=== PATIENT | male | born 1955 | race Caucasian/White ===

== ENCOUNTER → 2021-04-07 | Outpatient (CLI) | payer OTHER ==
[2021-04-07 14:02] LABS: ABSOLUTE RETIC # 84 10e9/uL (24-90); RETICULOCYTE % 1.67 % (0.50-2.40)
[2021-04-07 14:18] LABS: BASOPHILS % (MANUAL) 1 %; EOSINOPHILS % (MANUAL) 6 %; LYMPHOCYTES % (MANUAL) 20 %; MONOCYTES % (MANUAL) 13 %; NEUTROPHILS % (MANUAL) 44 %; RBC MORPH NORMAL; REACTIVE LYMPHOCYTES 16 %
== END ==
LOC: LABNPT 13:51
PROVIDERS: ATTEND Family Medicine
DX: Z01.89 Encounter for other specified special examinations (principal)
CPT/HCPCS: 85007; 85045; 85055

== ENCOUNTER 2021-05-11 05:27 | Outpatient (RCR) | payer OTHER ==
[2021-05-06 10:32] LABS: BASOPHILS % (AUTO) 1 % (0-10); EOSINOPHILS # (AUTO) 0.2 10^3/uL (0.0-0.3); EOSINOPHILS % (AUTO) 5 % (0-10); HEMATOCRIT 44 % (40-54); LYMPHOCYTES # (AUTO) 1.3 10^3/uL (1.0-4.0); LYMPHOCYTES % (AUTO) 36 % (12-44); MEAN CORPUSCULAR HEMOGLOBIN 30 pg (25-34); MEAN CORPUSCULAR HGB CONC 34 g/dL (32-36); MEAN CORPUSCULAR VOLUME 88 fL (80-99); MEAN PLATELET VOLUME 9.2 fL (9.0-12.2); MONOCYTES # (AUTO) 0.5 10^3/uL (0.0-1.0); MONOCYTES % (AUTO) 13 % (0-12); NEUTROPHILS # (AUTO) 1.6 10^3/uL (1.8-7.8); NEUTROPHILS % (AUTO) 45 % (42-75); PLATELET COUNT 144 10^3/uL (130-400); WHITE BLOOD COUNT 3.6 10^3/uL (4.3-11.0)
[2021-05-06 10:35] LABS: BILIRUBIN,URINE NEGATIVE (NEGATIVE); CLARITY,URINE CLEAR; COLOR,URINE YELLOW; GLUCOSE, URINE (UA) NEGATIVE (NEGATIVE); KETONES,URINE NEGATIVE (NEGATIVE); LEUKOCYTE ESTERASE ,URINE NEGATIVE (NEGATIVE); NITRITE,URINE NEGATIVE (NEGATIVE); PH,URINE 6.5 (5-9); PROTEIN,URINE NEGATIVE (NEGATIVE)
[2021-05-06 10:48] LABS: BACTERIA,URINE NEGATIVE /HPF
[2021-05-06 10:50] LABS: ALBUMIN 4.2 GM/DL (3.2-4.5); POTASSIUM 4.3 MMOL/L (3.6-5.0)
[2021-05-06 10:51] LABS: CALCIUM 9.5 MG/DL (8.5-10.1)
[2021-05-06 10:54] LABS: BILIRUBIN,TOTAL 0.6 MG/DL (0.1-1.0); ERYTHROCYTE SEDIMENTATION RATE 4 MM/HR (0-30)
[2021-05-06 10:56] LABS: CREATININE SERUM 1.07 MG/DL (0.60-1.30)
[2021-05-06 11:04] LABS: INR 0.9 (0.8-1.4); PROTHROMBIN TIME PATIENT 12.2 SEC (12.2-14.7)
--- NOTE | 2021-05-06 11:47 | Diagnostic Imaging Report ---
INDICATION: PREOP RIGHT TOTAL KNEE COMPARISON: None FINDINGS: Frontal and lateral views of the chest demonstrate normal heart size and pulmonary vascularity. The lungs are clear. There are no signs of infiltrate, pleural effusions or pneumothoraces. The visualized osseous structures show no acute abnormalities. IMPRESSION: 1. No acute process. No signs of infiltrates, effusions or pneumothoraces. Dictated by: Dictated on workstation # [id number]
[~2021-05-11] VITALS: Ht 193 cm; Wt 109.4 kg
== END 2021-05-12 08:45 | disposition home or self-care (01) ==
LOC: PREOP 05:27
PROVIDERS: ATTEND Orthopaedic Surgery
DX: Z01.812 Encounter for preprocedural laboratory examination (principal); M17.11 Unilateral primary osteoarthritis, right knee; Z20.822 Contact with and (suspected) exposure to COVID-19
CPT/HCPCS: 36415; 71046; 80053; 81000; 85025; 85610; 85652; 86850; 86900; 86901; 87081; 87636; 93005

== ENCOUNTER 2021-05-13 07:10 | Inpatient (IN) | payer OTHER ==
--- NOTE | 2021-05-05 15:36 | HISTORY AND PHYSICAL ---
DATE OF SERVICE: ADMISSION HISTORY AND PHYSICAL This will be for inpatient admission on 05/13/2021 for right total knee arthroplasty. The patient will require regular inpatient admission for pain management, need for physical therapy and gait abnormalities. HISTORY OF PRESENT ILLNESS: The patient is a 65-year-old gentleman with longstanding right knee pain. He has undergone injections in the past with only temporary relief of his symptoms. He reports pain on the anterior aspect of his knees. He reports difficulty with work because of the knee. He reports difficulty with activities of daily living. He reports difficulty with arising from a seated position and squatting. He reports difficulty with stairs. He denies radicular symptoms and denies paresthesias. Due to failure to respond to conservative measures, the patient has elected to proceed with surgical intervention. His radiographs reveal complete loss of patellofemoral joint space with near complete loss of medial joint space. REVIEW OF SYSTEMS: No chest pain, no shortness of breath, no dysuria. PAST MEDICAL HISTORY: Unremarkable. PAST SURGICAL HISTORY: Right knee arthroscopy, right rotator cuff. FAMILY HISTORY: Significant for coronary artery disease. PRIMARY CARE PROVIDER: Dr. Mohamud. MEDICATIONS: None. ALLERGIES: No known drug allergies. SOCIAL HISTORY: The patient drinks alcohol socially. Denies tobacco use. PHYSICAL EXAMINATION: GENERAL: The patient is well-developed, well-nourished, in no acute distress. HEENT: Normocephalic, atraumatic. Pupils are equal, round and reactive to light. Oropharynx is clear. NECK: Supple, with no lymphadenopathy. LUNGS: Clear to auscultation bilaterally. HEART: Regular rate and rhythm. ABDOMEN: Soft, nontender, nondistended. EXTREMITIES: The right knee demonstrates marked patellofemoral crepitus. He has a moderate effusion. He has pain with patellar loading. Range of motion is 0/2/125. There is no varus valgus laxity. Negative anterior and posterior drawer. He ambulates with an antalgic gait. He has negative straight leg raising. No pain with hip range of motion. IMPRESSION: Right knee osteoarthritis, unresponsive to conservative measures. PLAN: Right total knee arthroplasty. The risks, benefits, options, ramifications and recovery have been discussed at length with the patient. He understands and wishes to proceed. Job ID: [id number] DocumentID: [id number] Dictated Date: 04/28/2021 17:33:15 Ent Consultant Date: 04/28/2021 17:51:33 Dictated By: MANJEET CORREA MD
[~2021-05-13] VITALS: Ht 193 cm; Wt 109.4 kg
[2021-05-13] VITALS (12 sets, daily range): BP systolic 100–171; BP diastolic 55–92
[2021-05-13] MEDS ORDERED: diphenhydrAMINE 50 MG/ML INJ (BENADRYL) IVP PRN (07:30)
[2021-05-13] MEDS ORDERED: morphine PCA 100 MG/100 ML BAG IV PRN (07:30)
[2021-05-13] MEDS ORDERED: NALOXONE 0.4 MG/ML 1 ML (NARCAN) VIAL IV PRN (07:30)
[2021-05-13] MEDS ORDERED: PROMETHAZINE INJ 25 MG/ML (PHENERGAN) AMP IVP PRN (07:30)
--- NOTE | 2021-05-13 07:40 | Progress Note-Pre Operative ---
Pre-Operative Progress Note H&P Reviewed The H&P was reviewed, patient examined and no changes noted. Date Seen by Provider: May 13, 2021 Time Seen by Provider: 07:28 Date H&P Reviewed: May 13, 2021 Time H&P Reviewed: 07:11 Pre-Operative Diagnosis: right knee primary osteoarthritis MANJEET CORREA MD May 13, 2021 07:40
--- NOTE | 2021-05-13 07:40 | Progress Note-Post Operative ---
Post-Operative Progess Note Surgeon (s)/Universal Grinder Set Up Operator (s) Surgeon MANJEET CORREA MD Universal Grinder Set Up Operator: Patrick Moy Pre-Operative Diagnosis right knee primary osteoarthritis Post-Operative Diagnosis right knee primary osteoarthritis Procedure & Operative Findings Date of Procedure 05/13/21 Procedure Performed/Findings right total knee arthroplasty Anesthesia Type GETA Estimated Blood Loss Estimated blood loss (mL): minimal Specimens/Packing Specimens Removed none Packing: none MANJEET CORREA MD May 13, 2021 07:40
--- NOTE | 2021-05-13 07:42 | D/C HH Face to Face Order ---
D/C Face to Face Orders Reconcile Patient Problems Problems Reviewed?: Yes Instructions for Patient Via [facility], Patient Instructions/FollowUp: three weeks Physician to follow Patient: three weeks Discharge Diet for Home: Regular Diet Patient Data-Allergies,Ht & Wt Patient Allergies: Coded Allergies: ondansetron (Unverified Allergy, Unknown, Anaphylaxis, 05/06/21) Home Health Need/Face to Face Date of Face to Face: May 13, 2021 Clinical Findings: Muscle weakness, Pain with ambulation, Unsteady gait I have seen Pt [id number]: Yes Discharged To: Home Diagnosis/Conditions: right total knee arthroplasty Patient is Homebound due to: Hector fall risk due to instabilty, Muscle weakness, Pain w/ambulation Homebound Status Due to the above stated illness, injury or surgical procedure (medical condition or diagnosis) and associated clinical findings, the patient is homebound because of his/her inability to leave home except with aid of a supportive device and/or person AND leaving the home requires a considerable and taxing effort or is medically contraindicated. Pt req the following assistanc: Walker [facility] Nursing Orders Home Health Services Order: Physical Therapy-Evaluate & Treat DC right knee ioana and apply steri strips 05/27/21 Therapy Orders Therapy Orders: Physical Therapy, PT to assess for OT Therapy Specific Orders: Eval assistive deivces, Teach enviro modifications/safety, Gait training, Increase strength/endurance, Provider maintenance therapy, Restore ROM Certify Stmt I certify that this patient is under my care and that I, a nurse practitioner or a physician; a chef assistant working with me, had a face to face encounter that - meets the physician face to face encounter requirements with this patient as dated. MANJEET CORREA MD May 13, 2021 07:42
[2021-05-13] MEDS ORDERED: CEFUROXIME INJECTION 1,500 MG in NS (IVPB) 50 ML IV ONE (08:00)
[2021-05-13] MEDS ORDERED: INTRA-ARTICULAR IU ONE ×5 (08:00)
[2021-05-13] MEDS ORDERED: LACTATED RINGERS 1,000 ML IV PRN (08:00)
[2021-05-13] MEDS ORDERED: ONDANSETRON 4 MG/2 ML (SDV) Z0FRAN ONE (08:45)
[2021-05-13] MEDS ORDERED: fentaNYL INJ 100 MCG/2 ML AMP ONE (08:45)
[2021-05-13] MEDS ORDERED: MIDAZOLAM 2 MG/2 ML (VERSED) VIAL ONE (08:45)
[2021-05-13] MEDS ORDERED: proPOfol 200 MG/20 ML (DIPRIVAN) VIAL IV ONE (08:45)
[2021-05-13] MEDS ORDERED: LIDOCAINE PF 2% 5 ML (XYLOCAINE) VIAL ONE (08:45)
[2021-05-13] MEDS ORDERED: BUPIVACAINE 0.25% 30 ML (SENSORCAINE) VIAL ONE (08:54)
[2021-05-13] MEDS ORDERED: TRANEXAMIC ACID 100 MG/ML 10 ML INJECTION ONE (09:45)
[2021-05-13] MEDS ORDERED: HYDROmorphone 2 MG/ML VIAL (DILAUDID) ONE (09:48)
[2021-05-13] MEDS ORDERED: PHENYLEPHRINE 100 MCG/ML 10 ML (ANESTHESIA) SYR ONE (10:37)
[2021-05-13] MEDS ORDERED: SEVOFLURANE (ULTANE) 15 ML INHAL SOLN ONE (10:38)
--- NOTE | 2021-05-13 11:27 | Diagnostic Imaging Report ---
EXAMINATION: Right knee radiographs, 2 views. COMPARISON: None. HISTORY: 65-year-old male, right total knee arthroplasty. FINDINGS: There is a total right knee prosthesis. The hardware appears intact. There are anterior skin ioana. Intra-articular and soft tissue gas likely reflects recent post operative state of the patient. There are lucencies in the distal femur and proximal tibia which are likely post operative related. There is no identified acute fracture. There is ossification in the region of the femoral attachment site of the superficial component of the medial collateral ligament complex likely relating to remote prior injury. IMPRESSION: Intact right total knee prosthesis without identified complication. Dictated by: Dictated on workstation # [id number]
--- NOTE | 2021-05-13 12:23 | Progress Note ---
Standard Progress Note Progress Notes/Assess & Plan Date Seen by a Provider: May 13, 2021 Time Seen by a Provider: 10:25 Progress/Assessment & Plan postop check no complaints radiographs--HW well positioned without fracture RLE--2 plus DP pulse with brisk cap refill. Intact DF and PF of toes and ankle. sensation intact to light touch throughout s/p R TKA mobilize as able MANJEET CORREA MD May 13, 2021 12:23
--- NOTE | 2021-05-13 12:34 | Anesthesia-General Post-Op ---
General Patient Condition Mental Status/LOC: Same as Preop Cardiovascular: Satisfactory Nausea/Vomiting: Absent Respiratory: Satisfactory Pain: Controlled Complications: Absent Post Op Complications Complications None Follow Up Care/Instructions Patient Instructions None needed. Anesthesia/Patient Condition Patient Condition Patient is doing well, no complaints, stable vital signs, no apparent adverse anesthesia problems. No complications reported per nursing. MONTY NORWOOD CRNA May 13, 2021 12:33
[2021-05-13] MEDS: NS IV 1000 ML 1,000 ML IV SCH ×3 (12:45→23:49)
[2021-05-13] MEDS: oxyCODONE/APAP 5/325MG (PERCOCET 5) TABLET PO PRN ×3 (13:30→21:33)
--- NOTE | 2021-05-13 13:36 | Physical Therapy Evaluation ---
PT Evaluation-General Medical Diagnosis Admission Date May 13, 2021 at 07:10 Medical Diagnosis: right TKA Onset Date: May 13, 2021 Therapy Diagnosis Therapy Diagnosis: impaired mobility, ROM Referral Physician: Chinmay Reason for Referral: Evaluation/Treatment Medical History Additional Medical History PAST SURGICAL HISTORY: Right knee arthroscopy, right rotator cuff. Reviewed History: Yes Social History Current Living Status: Spouse Entry Into Home: Stairs With Railing PT Steps Into Home: 3 Prior Prior Level of Function SCALE: Activities may be completed with or without assistive devices. 0-Qphubeasdp-wpzwxar completes the activity by him/herself with no assistance from a helper. 5-Set-up or Clean-up Assistance-helper sets up or cleans up; patient completes activity. [place] assists only prior to or following the activity. 4-Supervision or Touching Assistance-helper provides verbal cues and/or touching/steadying and/or contact guard assistance as patient completes activity. Assistance may be provided throughout the activity or intermittently. 3-Partial/Moderate Assistance-helper does LESS THAN HALF the effort. [place] lifts, holds or supports trunk or limbs, but provides less than half the effort. 2-Substantial/Maximal Assistance-helper does MORE THAN HALF the effort. [place] lifts or holds trunk or limbs and provides more than half the effort. 5-Wersirjmz-flpdgz does ALL the effort. Patient does none of the effort to complete the activity. Or, the assistance of 2 or more helpers is required for the patient to complete the activity. If activity was not attempted, code reason: 7-Patient Refused. 9-Not Applicable-not attempted and the patient did not perform the activity before the current illness, exacerbation or injury. 10-Not Attempted due to Environmental Limitations-(lack of equipment, weather restraints, etc.). 88-Not Attempted due to Medical Conditions or Safety Concerns. Bed Mobility: 6 Transfers (B,C,W/C): 6 Gait: 6 Stairs: 6 Indoor Mobility (Ambulation): Independent Stairs: Independent PT Evaluation-Current Subjective Patient in bed pre tx, agrees to PT, states he doesn't have much pain in his right knee. Pt/Family Goals to walk his daughter during her wedding Objective Patient Orientation: Person, Place, Situation Attachments: SCD's, Polar Pack, IV ROM/Strength ROM Lower Extremities right knee flexion 90 degrees, extension +5 degrees Sensory Vision: Functional Hearing: Functional Sensation Right Lower Extremit: Impaired Sensation Left Lower Extremity: Intact Sensation Lower Extremities Patient still had some numbness from his nerve block on the right leg Transfers Roll Left to Right (QC): 6 Sit to Lying (QC): 6 Lying to Sitting/Side of Bed(Q: 6 Sit to Stand (QC): 4 Chair/Mkd-vs-Zoqnf Xfer(QC): 4 Gait Does the Patient Walk?: Yes Mode of Locomotion: Walk Anticipated Mode of Locomotion: Walk Walk 10 feet (QC): 4 Walk 50 ft with 2 Turns(QC): 4 Walk 150 ft (QC): 4 Distance: 160' Gait Assistive Device: FWW Comments/Gait Description slow but steady ambulation, small steps but good step through and decent foot clearance Balance Sitting Static: Normal Sitting Dynamic: Normal Standing Static: Good Standing Dynamic: Good Treatment RLE total knee protocol x10 (AP, QS, HS, SAQ, SLR) Assessment/Needs Patient in bed post tx with nurse call, phone, tradebora, SCD's on, [facility] on. Patient has impaired mobility, strength, ROM. Just CGA for transfers and ambulation. Rehab Potential: Fair PT Penitentiary Goals Penitentiary Goals PT Penitentiary Goals Time Frame: May 20, 2021 Roll Left & Right (QC): 6 Sit to Lying (QC): 6 Lying-Sitting on Side/Bed(QC): 6 Sit to Stand (QC): 6 Chair/Kgl-nh-Oqopr Xfer(QC): 6 Walk 10 feet (QC): 6 Walk 50ft with 2 Turns (QC): 6 Walk 150 ft (QC): 6 1 Step (curb) (QC): 4 4 Steps (QC): 4 PT Plan Problem List Problem List: Activity Tolerance, Functional Strength, Safety, Balance, Gait, Transfer, ROM Treatment/Plan Treatment Plan: Continue Plan of Care Treatment Plan: Education, Functional Activity Anahy, Functional Strength, Gait, Safety, Therapeutic Exercise, Transfers Treatment Duration: May 20, 2021 Frequency: 11 times per week Estimated Hrs Per Day: .25 hour per day Patient and/or Family Agrees t: Yes Safety Risks/Education Patient Education: Gait Training, Transfer Techniques, Correct Positioning, Safety Issues Teaching Recipient: Patient Teaching Methods: Demonstration, Discussion Response to Teaching: Reinforcement Needed Discharge Recommendations Plan Patient will perform bed mobility and transfer training, balance and endurance training, functional strengthening, stair training, gait training, and education, to improve functional mobility and independence at home. Therapy Discharge Recommendati: Home & Family, Post Acute PT Time/GCodes Time In: 1308 Time Out: 1326 Total Billed Treatment Time: 18 Total Billed Treatment 1 visit EVL 18' VERENA EL PT May 13, 2021 13:36
[2021-05-13] MEDS: SENNA W/DOCUSATE (SENOKOT S) TABLET PO SCH ×2 (14:22→21:32)
--- NOTE | 2021-05-13 16:21 | OPERATIVE REPORT ---
DATE OF SERVICE: 05/13/2021 PREOPERATIVE DIAGNOSIS: Right knee primary osteoarthritis. POSTOPERATIVE DIAGNOSIS: Right knee primary osteoarthritis. PROCEDURE: Right total knee arthroplasty. SURGEON: Davion Correa MD EXHIBITION ORGANISER: Patrick Moy, who assisted throughout the procedure and closed the incision. ANESTHESIA: General endotracheal by Zayda Gunn CRNA. TOURNIQUET TIME: 62 minutes at 300 mmHg. ESTIMATED BLOOD LOSS: Minimal. DRAINS: None. COMPLICATIONS: None. POSTOPERATIVE PLAN: Routine protocol. MATERIALS: Microport cemented size 7 femur, cemented size 7 tibia with 10 mm insert and cemented size 35 patellar button. STATEMENT OF MEDICAL NECESSITY: The patient is a 65-year-old active gentleman with complaints of progressively worsening right knee pain. Radiographs revealed severe patellofemoral arthrosis with moderate medial and patellofemoral arthrosis. He had undergone treatment with injections, rest, activity modifications without relief. Due to functional impairment and failure to improve with conservative measures, the patient elected to proceed with surgical intervention. DESCRIPTION OF PROCEDURE: After risks and benefits of the procedure were discussed and questions were answered, an informed consent was signed and placed on the chart. The operative site was confirmed in the preoperative holding area initialed by the surgeon. The patient was then transferred to the operating room and after adequate levels of general endotracheal anesthetic were obtained, a timeout was called, confirming the operative site. The right lower extremity was prepped and draped in the usual sterile fashion with the leg elevated and the knee flexed and tourniquet was inflated to 300 mmHg. Standard anterior approach was utilized. Hemostasis was obtained with cautery. Medial parapatellar arthrotomy was performed leaving 1 cm cuff on the patella for later reattachment. A portion of the fat pad was resected. A subperiosteal release was performed in the proximal medial tibia being careful to stay on the bony surface. The ACL was resected. Intramedullary guide was passed into the femoral canal. The distal cutting block was placed and distal cut was made. Femur sized to a size 7 cm, cutting block was placed parallel to the medial epicondylar axis and cuts were made from posterior to anterior. Subperiosteal release was then carefully performed on the posterior distal femur, being careful to stay on the bony surface. Intramedullary guide was then passed into the tibial canal. The cutting block was placed. The drop augustine transected the intermalleolar axis and the cut was made. This was sized to a size 7 cm, cutting block was placed parallel to the epicondylar axis and the drop augustine transected the intermalleolar axis. This was prepared with the drill and keel punch. The femoral trial was placed and trochlear cut was made. A 10 mm insert was provided full extension, 120 degrees of flexion with gravity. There was no anterior/posterior or medial/lateral laxity in flexion or extension. The patella was prepared by using the freehand technique and resecting 10 mm off the undersurface. Peg guide was placed and peg holes were drilled. The 35 trial was placed. The knee was taken through range of motion. Full extension was easily obtained, 120 degrees of flexion with gravity was easily obtained. There was no anterior/posterior or medial/lateral laxity in flexion or extension. The trials were removed. The joint was irrigated with pulse lavage. Periarticular block was placed in the posterior capsule, medial and lateral retinaculum, extensor mechanism, and subcutaneous tissues. Bone ends were irrigated and dried. The tibial baseplate was cemented into position. Superior surface was irrigated and dried and the polyethylene insert was placed. Excessive cement was removed. The distal femur was irrigated and dried and the femoral prosthesis was then cemented into position. Excessive cement was removed. The knee was brought out into full extension until cement cured. The undersurface of patella was irrigated and dried and the patellar button was cemented into position. This was held in position until the cement had cured. Once the cement had cured, the knee was taken through range of motion. Full extension was easily obtained, 120 degrees of flexion with gravity was easily obtained. There was no anterior/posterior or medial/lateral laxity in flexion or extension. The patella tracked well. The joint was further irrigated with pulse lavage. Arthrotomy was closed with #2 Tevdek in xilyie-ci-rbjdh interrupted fashion. Subcutaneous tissues were irrigated. The knee was flexed. No new tension was noted at the repair site. A total of 6 liters of pulse lavage was used throughout the procedure. A 0 Vicryl was used to close the deep subcutaneous tissue, 2-0 Vicryl for the superficial subcutaneous tissue, ioana used on the skin. A soft dressing was applied. The tourniquet was deflated and the patient was transferred to the recovery room awake and in stable condition. Job ID: [id number] DocumentID: [id number] Dictated Date: 05/13/2021 10:42:04 Cold Press Operator Date: 05/13/2021 16:20:15 Dictated By: DAVION CORREA MD
[2021-05-13] MEDS: CEFUROXIME INJECTION 750 MG in NS (IVPB) 50 ML IV SCH ×2 (16:29→23:48)
[2021-05-13] MEDS ORDERED: diphenhydrAMINE 25 MG TAB (BENADRYL) PO ONE (21:28)
[2021-05-13] MEDS: diphenhydrAMINE 25 MG TAB (BENADRYL) PO SCH (21:33)
[2021-05-14 04:35] VITALS: BP 133/78
[2021-05-14 05:48] LABS: HEMOGLOBIN 13.1 g/dL (13.3-17.7)
[2021-05-14 06:28] LABS: ALBUMIN 3.8 GM/DL (3.2-4.5); BASOPHILS % (AUTO) 0 % (0-10); EOSINOPHILS % (AUTO) 0 % (0-10); HEMATOCRIT 40 % (40-54); HEMOGLOBIN 13.2 g/dL (13.3-17.7); LYMPHOCYTES # (AUTO) 1.2 10^3/uL (1.0-4.0); LYMPHOCYTES % (AUTO) 12 % (12-44); MEAN CORPUSCULAR HEMOGLOBIN 30 pg (25-34); MEAN CORPUSCULAR HGB CONC 33 g/dL (32-36); MEAN CORPUSCULAR VOLUME 90 fL (80-99); MEAN PLATELET VOLUME 9.6 fL (9.0-12.2); MONOCYTES # (AUTO) 1.1 10^3/uL (0.0-1.0); MONOCYTES % (AUTO) 11 % (0-12); NEUTROPHILS # (AUTO) 7.5 10^3/uL (1.8-7.8); NEUTROPHILS % (AUTO) 77 % (42-75); PLATELET COUNT 156 10^3/uL (130-400); WHITE BLOOD COUNT 9.8 10^3/uL (4.3-11.0)
[2021-05-14 06:29] LABS: POTASSIUM 4.3 MMOL/L (3.6-5.0)
[2021-05-14 06:30] LABS: CALCIUM 8.8 MG/DL (8.5-10.1)
[2021-05-14 06:31] LABS: TOTAL PROTEIN 6.3 GM/DL (6.4-8.2)
[2021-05-14 06:33] LABS: BILIRUBIN,TOTAL 0.9 MG/DL (0.1-1.0)
[2021-05-14 06:35] LABS: CREATININE SERUM 0.99 MG/DL (0.60-1.30)
[2021-05-14] MEDS: ENOXAPARIN 30 MG/0.3 ML (LOVENOX) SYR SC SCH ×2 (06:51→20:29)
[2021-05-14] MEDS: MULTIVIT W/MINERALS TAB (THERAGRAN M) PO SCH (06:51)
--- NOTE | 2021-05-14 07:55 | Anesthesia-General Post-Op ---
General Patient Condition Mental Status/LOC: Same as Preop Cardiovascular: Satisfactory Nausea/Vomiting: Absent Respiratory: Satisfactory Pain: Controlled Complications: Absent Post Op Complications Complications None Follow Up Care/Instructions Patient Instructions None needed. Anesthesia/Patient Condition Patient Condition Patient is doing well, no complaints, stable vital signs, no apparent adverse anesthesia problems. No complications reported per nursing. JUJU SOLER CRNA May 14, 2021 07:55
[2021-05-14 08:06] VITALS: BP 132/67
--- NOTE | 2021-05-14 08:07 | Progress Note ---
Standard Progress Note Progress Notes/Assess & Plan Date Seen by a Provider: May 14, 2021 Time Seen by a Provider: 08:06 Progress/Assessment & Plan postop check no complaints radiographs--HW well positioned without fracture RLE--2 plus DP pulse with brisk cap refill. Intact DF and PF of toes and ankle. sensation intact to light touch throughout s/p R TKA mobilize as able Final Diagnosis no complaints Vital Signs Date Time Temp Pulse Resp B/P (MAP) Pulse Ox O2 Delivery O2 Flow Rate FiO2 05/14/21 04:35 36.7 72 18 133/78 (96) 95 Room Air 05/13/21 23:45 36.6 67 18 118/73 (88) 94 Room Air 05/13/21 21:00 Room Air 05/13/21 20:40 37.0 69 20 128/80 (96) 94 Room Air 05/13/21 16:22 36.8 77 20 131/75 (93) 94 Room Air 05/13/21 14:53 Room Air 05/13/21 12:01 36.4 77 18 142/74 (96) 95 Room Air 05/13/21 11:40 Room Air 05/13/21 11:29 37.1 20 130/91 (104) 97 Room Air 05/13/21 11:20 21 153/91 (111) 100 OxyMask 10 05/13/21 11:10 OxyMask 10 05/13/21 11:10 20 156/92 (113) 100 OxyMask 10 05/13/21 11:00 18 138/82 (100) 100 OxyMask 10 05/13/21 10:51 16 158/89 (112) 100 OxyMask 10 05/13/21 10:45 OxyMask 10 05/13/21 10:45 36.2 20 171/91 (117) 97 OxyMask 10 I & O 05/14/21 07:00 Intake Total 2142 ml Output Total 1525 ml Balance 617 ml Laboratory Tests Test 05/14/21 05:17 Range/Units White Blood Count 9.8 4.3-11.0 10^3/uL Red Blood Count 4.39 4.30-5.52 10^6/uL Hemoglobin 13.2 L 13.3-17.7 g/dL Hematocrit 40 40-54 % Mean Corpuscular Volume 90 80-99 fL Mean Corpuscular Hemoglobin 30 25-34 pg Mean Corpuscular Hemoglobin Concent 33 32-36 g/dL Red Cell Distribution Width 13.1 10.0-14.5 % Platelet Count 156 130-400 10^3/uL Mean Platelet Volume 9.6 9.0-12.2 fL Immature Granulocyte % (Auto) 0 % Neutrophils (%) (Auto) 77 H 42-75 % Lymphocytes (%) (Auto) 12 12-44 % Monocytes (%) (Auto) 11 0-12 % Eosinophils (%) (Auto) 0 0-10 % Basophils (%) (Auto) 0 0-10 % Neutrophils # (Auto) 7.5 1.8-7.8 10^3/uL Lymphocytes # (Auto) 1.2 1.0-4.0 10^3/uL Monocytes # (Auto) 1.1 H 0.0-1.0 10^3/uL Eosinophils # (Auto) 0.0 0.0-0.3 10^3/uL Basophils # (Auto) 0.0 0.0-0.1 10^3/uL Immature Granulocyte # (Auto) 0.0 0.0-0.1 10^3/uL Sodium Level 136 135-145 MMOL/L Potassium Level 4.3 3.6-5.0 MMOL/L Chloride Level 104 98-107 MMOL/L Carbon Dioxide Level 20 L 21-32 MMOL/L Anion Gap 12 5-14 MMOL/L Blood Urea Nitrogen 16 7-18 MG/DL Creatinine 0.99 0.60-1.30 MG/DL Estimat Glomerular Filtration Rate 85 BUN/Creatinine Ratio 16 Glucose Level 122 H 70-105 MG/DL Calcium Level 8.8 8.5-10.1 MG/DL Corrected Calcium 9.0 8.5-10.1 MG/DL Total Bilirubin 0.9 0.1-1.0 MG/DL Aspartate Amino Transf (AST/SGOT) 15 5-34 U/L Alanine Aminotransferase (ALT/SGPT) 19 0-55 U/L Alkaline Phosphatase 43 40-136 U/L Total Protein 6.3 L 6.4-8.2 GM/DL Albumin 3.8 3.2-4.5 GM/DL RLE--NVI distally no calf tenderness s/p RTKA doing well PT/OT MANJEET CORREA MD May 14, 2021 08:07
[2021-05-14] MEDS: SENNA W/DOCUSATE (SENOKOT S) TABLET PO SCH ×2 (08:16→20:29)
[2021-05-14] MEDS: ASPIRIN E.C. 81 MG (ECOTRIN) TAB PO SCH (08:16)
[2021-05-14] MEDS: oxyCODONE/APAP 5/325MG (PERCOCET 5) TABLET PO PRN ×6 (08:17→20:29)
--- NOTE | 2021-05-14 09:47 | Physical Therapy Daily Note ---
PT Daily Note-Current Subjective Patient agrees to PT. Pain Numeric Pain Scale: 8 Location: Right Location Body Site: Knee Pain Description: Acute Mental Status Patient Orientation: Normal For Age Attachments: IV Transfers SCALE: Activities may be completed with or without assistive devices. 2-Dvwzphwgmw-oblzaxl completes the activity by him/herself with no assistance from a helper. 5-Set-up or Clean-up Assistance-helper sets up or cleans up; patient completes activity. [place] assists only prior to or following the activity. 4-Supervision or Touching Assistance-helper provides verbal cues and/or touching/steadying and/or contact guard assistance as patient completes activity. Assistance may be provided throughout the activity or intermittently. 3-Partial/Moderate Assistance-helper does LESS THAN HALF the effort. [place] lifts, holds or supports trunk or limbs, but provides less than half the effort. 2-Substantial/Maximal Assistance-helper does MORE THAN HALF the effort. [place] lifts or holds trunk or limbs and provides more than half the effort. 1-Hvqnkyvei-tneyvj does ALL the effort. Patient does none of the effort to complete the activity. Or, the assistance of 2 or more helpers is required for the patient to complete the activity. If activity was not attempted, code reason: 7-Patient Refused. 9-Not Applicable-not attempted and the patient did not perform the activity before the current illness, exacerbation or injury. 10-Not Attempted due to Environmental Limitations-(lack of equipment, weather restraints, etc.). 88-Not Attempted due to Medical Conditions or Safety Concerns. Lying to Sitting/Side of Bed(Q: 6 Sit to Stand (QC): 6 Chair/Vyp-wj-Lvcfg Xfer(QC): 6 Gait Training Distance: 250' Walk 10 feet (QC): 4 Walk 50 ft with 2 Turns(QC): 4 Walk 150 ft (QC): 4 Gait Assistive Device: FWW steady, slightly antalgic gait sequence (reciprocal pattern) Exercises Supine Ex: Ankle pumps, Quad Set, Heel Slides, Straight leg raise Supine Reps: 15 Seated Therapy Exercises: Long arc quads Seated Reps: 20 Assessment Patient progressing with treatment plan and will dismiss to home tomorrow a.m. after PT. AROM 0-95 right knee in supine and sit PT Usp Goals Usp Goals PT Superintendent Laundry Goals Time Frame: May 20, 2021 Roll Left & Right (QC): 6 Sit to Lying (QC): 6 Lying-Sitting on Side/Bed(QC): 6 Sit to Stand (QC): 6 Chair/Uua-ic-Qqcmx Xfer(QC): 6 Walk 10 feet (QC): 6 Walk 50ft with 2 Turns (QC): 6 Walk 150 ft (QC): 6 1 Step (curb) (QC): 4 4 Steps (QC): 4 PT Plan Treatment/Plan Treatment Plan: Continue Plan of Care Treatment Plan: Education, Functional Activity Anahy, Functional Strength, Gait, Safety, Therapeutic Exercise, Transfers Treatment Duration: May 20, 2021 Frequency: 11 times per week Estimated Hrs Per Day: .25 hour per day Patient and/or Family Agrees t: Yes Time/GCodes Time In: 805 Time Out: 828 Total Billed Treatment Time: 23 Total Billed Treatment 1 visit EX 14 min GT 9 min ARACELI JONES PT May 14, 2021 09:47
--- NOTE | 2021-05-14 10:01 | Consultation ---
MAKENZIE WOOYD 05/14/21 1001: HPI History of Present Illness: HPI/Chief Complaint Chief Complaint: status post right total knee arthroplasty History of Present Illness: This is a 65 yo WM status post right total knee arthroplasty which was done on 05/13/[address] Rosenberg. No significant past medical history and reports not taking any home medications for medical issues. 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 Patient says his pain is well controlled. He is getting up walking, doing his exercises. His pain is well controlled. Is urinating, has not yet had a bowel movement. Overall doing well. Vital signs, electrolytes, and blood studies are also unremarkable. Patient using IS as well. Source: patient Exam Limitations: no limitations Date Seen 05/14/21 09:10 Attending Physician Davion Rosenberg MD PCP Karly Mohamud MD Referring Physician Date of Admission May 13, 2021 at 07:10 Home Medications & Allergies Home Medications Reviewed patient Home Medication Reconciliation performed by pharmacy medication reconciliations certified pharmacy technician and/or nursing. Patients Allergies have been reviewed. Allergies Allergies Coded Allergies ondansetron (Unverified Allergy, Unknown, Anaphylaxis, 05/06/21) Past Yzufhqd-Drfkew-Gtuqzb Hx Patient Social History Tobacco Use?: No Smokeless type used: Chew Smokeless Tobacco Frequency: Current Everyday User Use of E-Cig and/or Vaping dev: No Substance use?: No Alcohol Use?: Yes Alcohol Frequency: Once in a while Pt feels they are or have been: No Seasonal Allergies Seasonal Allergies: No Current Status Advance Directives: No Communicates: Verbally Primary Language: [place] Sensory deficits: Vision impairment Implanted or Applied Medical D: None Past Medical History Arthritis Review of Systems Constitutional: No chills, No diaphoresis, No dizziness, No fever, No malaise EENTM: No hearing loss, No blurred vision Respiratory: No cough, No dyspnea on exertion, No short of breath Cardiovascular: No chest pain, No edema Gastrointestinal: No abdominal pain, No diarrhea, No nausea, No vomiting Genitourinary: No decreased output, No dysuria, No frequency Musculoskeletal: No back pain, No joint pain, No muscle pain; other (Pain controlled with medications.) Skin: No change in color, No dryness Psychiatric/Neurological: Denies Anxiety, Denies Depressed, Denies Headache, Denies Numbness, Denies Paresthesia Physical Exam Physical Exam Vital Signs Vital Signs - First Documented Capillary Refill : Less Than 3 Seconds Height, Weight, BMI Height: '" Weight: lbs. oz. kg; 29.36 BMI Method: General Appearance: No Apparent Distress, WD/WN Cardiovascular: Regular Rate, Rhythm Gastrointestinal: Normal Bowel Sounds, No Organomegaly, No Pulsatile Mass, Non Tender Rectal: Normal Rectal Tone Neurologic/Psychiatric: Alert, Oriented x3, No Motor/Sensory Deficits, Normal Mood/Affect Skin: Normal Color, Warm/Dry Results Results/Procedures Labs Laboratory Tests 05/14/21 05:17 Patient resulted labs reviewed. Assessment/Plan Assessment and Plan Assess & Plan/Chief Complaint s/p Right total knee arthroplasty PO #1 Plan: Pain control Supportive care Monitor vitals and labs NATHAN LEE DO 05/15/21 0620: HPI History of Present Illness: HPI/Chief Complaint Chief complaint: Status post uncomplicated right total knee replacement History present illness: This is a 65-year-old white male clinic patient Dr. Mohamud who presents following an uncomplicated right total knee replacement and is doing well. and son are at the bedside. Labs remained stable and vitals remained stable. Pain is well controlled. Source: patient Exam Limitations: no limitations Referring Physician Chet Past Zgndogs-Xkgoay-Hjkagg Hx Patient Social History Marrital Status: Employed/Student: employed Smoking Status: Never a Smoker Alcohol Use?: No Past Medical History Surgeries: Orthopedic Review of Systems Constitutional: see HPI, weakness EENTM: no symptoms reported Respiratory: no symptoms reported Cardiovascular: no symptoms reported Gastrointestinal: constipation Genitourinary: no symptoms reported Musculoskeletal: joint pain Skin: no symptoms reported Psychiatric/Neurological: No Symptoms Reported All Other Systems Reviewed Negative Unless Noted: Yes Physical Exam Physical Exam General Appearance: No Apparent Distress, WD/WN Eyes: Bilateral Eye Normal Inspection, Bilateral Eye PERRL HEENT: PERRL/EOMI, Normal ENT Inspection, Pharynx Normal Neck: Full Range of Motion, Normal Inspection, Non Tender, Supple, Carotid Bruit Respiratory: Chest Non Tender, Lungs Clear, Normal Breath Sounds, No Accessory Muscle Use, No Respiratory Distress Cardiovascular: Regular Rate, Rhythm, No Edema, No Gallop, No JVD, No Murmur, Normal Peripheral Pulses Gastrointestinal: Normal Bowel Sounds, No Organomegaly, No Pulsatile Mass, Non Tender, Soft Back: Normal Inspection, No CVA Tenderness, No Vertebral Tenderness Extremity: Normal Capillary Refill, Normal Inspection, Normal Range of Motion (Except post-op leg), Non Tender, No Calf Tenderness, No Pedal Edema Neurologic/Psychiatric: Alert, Oriented x3, No Motor/Sensory Deficits, Normal Mood/Affect Skin: Normal Color, Warm/Dry Lymphatic: No Adenopathy Assessment/Plan Assessment and Plan Assess & Plan/Chief Complaint Assessment: Status post right total knee arthroplasty postop day #1 Plan: Pain control DVT prophylaxis per Ortho Supervisory-Addendum Brief Verification & Attestation Participated in pt care: history, MDM, physical Personally performed: exam, history, MDM, supervision of care Care discussed with: Medical Student Procedures: n/a Results interpretation: Verified all documentation Verification and Attestation of Medical Student E/M Service A medical student performed and documented this service in my presence. I reviewed and verified all information documented by the medical student and made modifications to such information, when appropriate. I personally performed the physical exam and medical decision making. Nathan Lee May 15, 2021,06:17 MAKENZIE WOODY May 14, 2021 10:01 NATHAN LEE DO May 15, 2021 06:20
--- NOTE | 2021-05-14 11:33 | Occupational Therapy Eval ---
OT Evaluation-General/PLF Medical Diagnosis Admission Date May 13, 2021 at 07:10 Medical Diagnosis: right TKA Onset Date: May 13, 2021 Therapy Diagnosis Therapy Diagnosis: decreased ADL status Precautions Precautions/Isolations: Fall Prevention, Standard Precautions Referral Physician: Chinmay Referral Reason: Evaluation/Treatment Medical History Additional Medical History R rotator cuff Current History s/p elective R TKA Social History Home: Single Level Current Living Status: Spouse Entry Into Home: Stairs With Railing Steps Into Home: 3 ADL-Prior Level of Function SCALE: Activities may be completed with or without assistive devices. 1-Hbnnbwuaiy-ufodpkd completes the activity by him/herself with no assistance from a helper. 5-Set-up or Clean-up Assistance-helper sets up or cleans up; patient completes activity. [place] assists only prior to or following the activity. 4-Supervision or Touching Assistance-helper provides verbal cues and/or touching/steadying and/or contact guard assistance as patient completes activity. Assistance may be provided throughout the activity or intermittently. 3-Partial/Moderate Assistance-helper does LESS THAN HALF the effort. [place] lifts, holds or supports trunk or limbs, but provides less than half the effort. 2-Substantial/Maximal Assistance-helper does MORE THAN HALF the effort. [place] lifts or holds trunk or limbs and provides more than half the effort. 8-Gbjrhoklq-zfwzrn does ALL the effort. Patient does none of the effort to complete the activity. Or, the assistance of 2 or more helpers is required for the patient to complete the activity. If activity was not attempted, code reason: 7-Patient Refused. 9-Not Applicable-not attempted and the patient did not perform the activity before the current illness, exacerbation or injury. 10-Not Attempted due to Environmental Limitations-(lack of equipment, weather restraints, etc.). 88-Not Attempted due to Medical Conditions or Safety Concerns. ADL PLOF Comments Pt reports IND with ADLs and functional mobility at [facility], no AD. He lives with his who is able to assist pt as needed with LB dressing. he has a walk in shower and a tub/shower. Pt does not own a SC, but plans on borrowing one from a family member. Self Care: Independent Functional Cognition: Independent DME/Equipment: Shower, Tub/Shower Occupation: works for [employer] OT Current Status Subjective Pt in recliner, family member present. Pt agreeable to OT evaluation. Pt plans to discharge home tomorrow with spouse Mental Status/Objective Patient Orientation: Person, Place, Time, Situation Current Upper Extremity ROM WFL Upper Extremity Strength WFL ADL-Treatment Eating (QC): 6 (per pt report.) Oral Hygiene (QC): 5 (per clinical judgment.) Lower Body Dressing (QC): 3 (per pt report/clinical judgment) On/Off Footwear (QC): 3 (per pt report/clinical judgment) Toileting Hygiene (QC): 7 Other Treatments Pt up in recliner, agreeable to OT evaluation. Pt reports his is at home all the time and able to assist pt as needed. Pt's main concern is difficulty with LB dressing and footwear, but feels his will be able to manage. Pt was still working for the [employer] and plans to return to work. Pt declined ADLs at this time, states he doesn't need to toilet. OT and pt discussed benefits of SC, pt able to borrow one from family, and OT educated pt on modifications for ADL tasks, he verbalized understanding. Post tx, pt in recliner, call light in reach and all needs met. Education OT Patient Education: Correct positioning, Energy conservation, Modified ADL techniques, Progress toward Goal/Update tx plan, Purpose of tx/functional activities, Rehab process Teaching Recipient: Patient Teaching Methods: Discussion Response to Teaching: Verbalize Understanding OT Senior Living Goals Occupational Nurse Goals Time Frame: May 22, 2021 Eating (QC): 6 Oral Hygiene (QC): 6 Toileting Hygiene (QC): 6 Shower/Bathe Self (QC): 4 Upper Body Dressing (QC): 6 Lower Body Dressing (QC): 4 On/Off Footwear (QC): 4 Additional Goals: 1-Demonstrate ADL Tasks, 2-Verbalize Understanding, 3- ImproveStrength/Anahy 1=Demonstrate adherence to instructed precautions during ADL tasks. 2=Patient will verbalize/demonstrate understanding of assistive devices/modifications for ADL. 3=Patient will improve strength/tolerance for activity to enable patient to perform ADL's. OT Education/Plan Problem List/Assessment Assessment: Impaired Funct Balance, Impaired I ADL's, Impaired Self-Care Skills Pt would benefit from short term skilled OT services in order to increase independence and safety with ADLs and functional mobility in order to maximize LOF for safe return home. Discharge Recommendations Plan/Recommendations: Continue POC Treatment Plan/Plan of Care Patient would benefit from OT for education, treatment and training to promote independence in ADL's, mobility, safety and/or upper extremity function for ADL's. Plan of Care: ADL Retraining, Functional Mobility, UE Funct Exercise/Act Treatment Duration: May 22, 2021 Frequency: 3 times per week (3-5 times per week) Estimated Hrs Per Day: .25 hour per day Rehab Potential: Good Time/GCodes Start Time: 10:45 Stop Time: 10:55 Total Time Billed (hr/min): 10 Billed Treatment Time 1, SAMIRA MCKINNEY OT May 14, 2021 11:33
[2021-05-14 11:42] VITALS: BP 163/83
[2021-05-14] MEDS: NS IV 1000 ML 1,000 ML IV SCH (12:13)
--- NOTE | 2021-05-14 13:39 | Physical Therapy Daily Note ---
PT Daily Note-Current Subjective Patient is very agreeable to participate with PT. Spouse present. Pain Numeric Pain Scale: 8 Location: Right Location Body Site: Knee Pain Description: Acute Mental Status Patient Orientation: Normal For Age Attachments: IV Transfers SCALE: Activities may be completed with or without assistive devices. 5-Wyztigqewl-cunhbxx completes the activity by him/herself with no assistance from a helper. 5-Set-up or Clean-up Assistance-helper sets up or cleans up; patient completes activity. [place] assists only prior to or following the activity. 4-Supervision or Touching Assistance-helper provides verbal cues and/or touching/steadying and/or contact guard assistance as patient completes activity. Assistance may be provided throughout the activity or intermittently. 3-Partial/Moderate Assistance-helper does LESS THAN HALF the effort. [place] lifts, holds or supports trunk or limbs, but provides less than half the effort. 2-Substantial/Maximal Assistance-helper does MORE THAN HALF the effort. [place] lifts or holds trunk or limbs and provides more than half the effort. 4-Oqbnnztte-hdwsig does ALL the effort. Patient does none of the effort to complete the activity. Or, the assistance of 2 or more helpers is required for the patient to complete the activity. If activity was not attempted, code reason: 7-Patient Refused. 9-Not Applicable-not attempted and the patient did not perform the activity before the current illness, exacerbation or injury. 10-Not Attempted due to Environmental Limitations-(lack of equipment, weather restraints, etc.). 88-Not Attempted due to Medical Conditions or Safety Concerns. Sit to Stand (QC): 6 Gait Training Distance: 600' Walk 10 feet (QC): 6 Walk 50 ft with 2 Turns(QC): 6 Walk 150 ft (QC): 6 Gait Assistive Device: FWW steady reciprocal pattern Exercises Supine Ex: Ankle pumps, Quad Set, Heel Slides, Straight leg raise Supine Reps: 15 (in recliner with bilateral LE elevated) Seated Therapy Exercises: Long arc quads Seated Reps: 20 Assessment Patient remains up in recliner with needs met. Plan dismissal in a.m. PT Retirement Goals Retirement Goals PT Cloth Folder Machine Goals Time Frame: May 20, 2021 Roll Left & Right (QC): 6 Sit to Lying (QC): 6 Lying-Sitting on Side/Bed(QC): 6 Sit to Stand (QC): 6 Chair/Ywu-bx-[place] Xfer(QC): 6 Walk 10 feet (QC): 6 Walk 50ft with 2 Turns (QC): 6 Walk 150 ft (QC): 6 1 Step (curb) (QC): 4 4 Steps (QC): 4 PT Plan Treatment/Plan Treatment Plan: Continue Plan of Care Treatment Plan: Education, Functional Activity Anahy, Functional Strength, Gait, Safety, Therapeutic Exercise, Transfers Treatment Duration: May 20, 2021 Frequency: 11 times per week Estimated Hrs Per Day: .25 hour per day Patient and/or Family Agrees t: Yes Time/GCodes Time In: 1310 Time Out: 1333 Total Billed Treatment Time: 23 Total Billed Treatment 1 visit EX 10 min GT 13 min ARACELI JONES PT May 14, 2021 13:39
[2021-05-14 15:32] VITALS: BP 137/72
[2021-05-14 19:30] VITALS: BP 170/75
[2021-05-14] MEDS: diphenhydrAMINE 25 MG TAB (BENADRYL) PO SCH (20:29)
--- NOTE | 2021-05-14 22:05 | DISCHARGE SUMMARY ---
DATE OF SERVICE: DIAGNOSES: Right knee primary osteoarthritis. PROCEDURE: Right total knee arthroplasty. SUMMARY: The patient is a 65-year-old gentleman, who underwent a right total knee arthroplasty on the day of admission. Postoperatively, he progressed well. At time of discharge, his wound was clean and dry, had no calf tenderness. Negative Homans sign. CONDITION AT DISCHARGE: Good. DISCHARGE DIET: Regular. FOLLOWUP: Followup is in 3 weeks. ACTIVITIES: Weightbearing as tolerated with a walker. DISCHARGE MEDICATIONS: Home medications, Percocet as needed for pain, one aspirin per day for 30 days. Job ID: [id number] DocumentID: [id number] Dictated Date: 05/14/2021 18:10:51 Automotive Brake Technician Date: 05/14/2021 22:03:58 Dictated By: MANJEET CORREA MD
[2021-05-15] MEDS: oxyCODONE/APAP 5/325MG (PERCOCET 5) TABLET PO PRN ×4 (00:08→08:58)
[2021-05-15] MEDS: NS IV 1000 ML 1,000 ML IV SCH (00:11)
[2021-05-15 00:38] VITALS: BP 154/85
[2021-05-15 04:04] VITALS: BP 156/88
[2021-05-15 05:49] LABS: HEMOGLOBIN 12.2 g/dL (13.3-17.7)
[2021-05-15] MEDS: MULTIVIT W/MINERALS TAB (THERAGRAN M) PO SCH (05:55)
--- NOTE | 2021-05-15 06:55 | Progress Note ---
Standard Progress Note Progress Notes/Assess & Plan Date Seen by a Provider: May 15, 2021 Time Seen by a Provider: 06:54 Progress/Assessment & Plan postop check no complaints radiographs--HW well positioned without fracture RLE--2 plus DP pulse with brisk cap refill. Intact DF and PF of toes and ankle. sensation intact to light touch throughout s/p R TKA mobilize as able Final Diagnosis no complaints Vital Signs Date Time Temp Pulse Resp B/P (MAP) Pulse Ox O2 Delivery O2 Flow Rate FiO2 05/15/21 04:04 37.0 78 20 156/88 (110) 97 Room Air 05/15/21 00:38 37.8 83 20 154/85 (108) 90 Room Air 05/14/21 21:00 Room Air 05/14/21 19:30 37.3 92 18 170/75 (106) 97 Room Air 05/14/21 15:32 36.9 76 18 137/72 (93) 98 Room Air 05/14/21 11:42 37.0 75 18 163/83 (109) 99 Room Air 05/14/21 11:36 Room Air 0.00 05/14/21 08:25 Room Air 05/14/21 08:06 36.9 70 18 132/67 (88) 97 Room Air I & O 05/15/21 07:00 Intake Total 1970 ml Output Total 3675 ml Balance -1705 ml Laboratory Tests Test 05/15/21 05:36 Range/Units Hemoglobin 12.2 L 13.3-17.7 g/dL Hematocrit 37 L 40-54 % RLE--incision clean and dry. No calf tenderness. Neg Yoni's s/p RTKA doing well DC after PT MANJEET CORREA MD May 15, 2021 06:55
[2021-05-15] MEDS ORDERED: morphine INJ 4 MG/ML 1 ML (VIAL/SYRINGE) IVP PRN (07:00)
[2021-05-15 08:05] VITALS: BP 150/86
[2021-05-15] MEDS: ASPIRIN E.C. 81 MG (ECOTRIN) TAB PO SCH (08:53)
[2021-05-15] MEDS: ENOXAPARIN 30 MG/0.3 ML (LOVENOX) SYR SC SCH (08:53)
[2021-05-15] MEDS: SENNA W/DOCUSATE (SENOKOT S) TABLET PO SCH (08:53)
--- NOTE | 2021-05-15 09:46 | Physical Therapy Daily Note ---
PT Daily Note-Current Subjective Pt was in bed and verbalized consent to treat. Patient just received a new dressing. Patient reports increase in swelling and pain in R LE Pain Comment: no rating verbalized Mental Status Patient Orientation: Person, Place, Situation Transfers SCALE: Activities may be completed with or without assistive devices. 9-Evawxevzhl-gwdoqaq completes the activity by him/herself with no assistance from a helper. 5-Set-up or Clean-up Assistance-helper sets up or cleans up; patient completes activity. [place] assists only prior to or following the activity. 4-Supervision or Touching Assistance-helper provides verbal cues and/or touching/steadying and/or contact guard assistance as patient completes activity. Assistance may be provided throughout the activity or intermittently. 3-Partial/Moderate Assistance-helper does LESS THAN HALF the effort. [place] lifts, holds or supports trunk or limbs, but provides less than half the effort. 2-Substantial/Maximal Assistance-helper does MORE THAN HALF the effort. [place] lifts or holds trunk or limbs and provides more than half the effort. 5-Vewtloxwd-emeawu does ALL the effort. Patient does none of the effort to complete the activity. Or, the assistance of 2 or more helpers is required for the patient to complete the activity. If activity was not attempted, code reason: 7-Patient Refused. 9-Not Applicable-not attempted and the patient did not perform the activity before the current illness, exacerbation or injury. 10-Not Attempted due to Environmental Limitations-(lack of equipment, weather restraints, etc.). 88-Not Attempted due to Medical Conditions or Safety Concerns. Roll Left & Right (QC): 5 Sit to Lying (QC): 5 Lying to Sitting/Side of Bed(Q: 5 Sit to Stand (QC): 5 Weight Bearing Right Lower Extremity: Right Weight Bearing/Tolerated Left Lower Extremity: Left Full Weight Bearing Gait Training Does the Patient Walk?: Yes Walk 10 feet (QC): 4 Walk 50 ft with 2 Turns(QC): 4 Walk 150 ft (QC): 4 Gait Assistive Device: FWW Patient ambulated 250' with no rest periods, stiff right knee but good step through Wheelchair Training Does the Pt Use a Wheelchair?: No Type of Wheelchair: N/A Exercises Supine Ex: Ankle pumps, Quad Set, Heel Slides, Short Arc Quads, Straight leg raise Supine Reps: 10 Treatments LE strength, mobility, ROM, ambulation Assessment Current Status: Good Progress Pt had increase swelling and pain in R LE. Patient was able to ambulate well with FWW. PT Assistant Laboratory Director Goals Assistant Laboratory Director Goals PT Assistant Laboratory Director Goals Time Frame: May 20, 2021 Roll Left & Right (QC): 6 Sit to Lying (QC): 6 Lying-Sitting on Side/Bed(QC): 6 Sit to Stand (QC): 6 Chair/Qae-yt-Ihlgn Xfer(QC): 6 Walk 10 feet (QC): 6 Walk 50ft with 2 Turns (QC): 6 Walk 150 ft (QC): 6 1 Step (curb) (QC): 4 4 Steps (QC): 4 PT Plan Problem List Problem List: Activity Tolerance, Functional Strength, Safety, Balance, Gait, Transfer, ROM Treatment/Plan Treatment Plan: Continue Plan of Care Treatment Plan: Education, Functional Activity Anahy, Functional Strength, Gait, Safety, Therapeutic Exercise, Transfers Treatment Duration: May 20, 2021 Frequency: 11 times per week Estimated Hrs Per Day: .25 hour per day Patient and/or Family Agrees t: Yes Safety Risks/Education Patient Education: Gait Training, Transfer Techniques, Correct Positioning, Safety Issues Teaching Recipient: Patient Teaching Methods: Demonstration, Discussion Response to Teaching: Verbalize Understanding Time/GCodes Time In: 0900 Time Out: 916 Total Billed Treatment Time: 17 Total Billed Treatment 1 Visit FA VERENA SALAZAR PT May 15, 2021 09:46
== END 2021-05-15 10:00 | disposition home or self-care (01) | DRG 470 ==
LOC: 4TH 07:10 → SURG 07:11 → 4TH 11:20
PROVIDERS: ADMIT Orthopaedic Surgery; ATTEND Orthopaedic Surgery
PROC: 0SRC0J9 Replacement of Right Knee Joint with Synthetic Substitute, Cemented, Open Approach (ICD-10-PCS; principal; 2021-05-13 09:14)
DX: M17.11 Unilateral primary osteoarthritis, right knee (principal); F17.210 Nicotine dependence, cigarettes, uncomplicated
CPT/HCPCS: 36415; 73560; 80053; 85014; 85018; 85025; 86850; 86900; 86901; 94664

== ENCOUNTER 2021-07-22 09:37 | Outpatient (CLI) | payer OTHER ==
[~2021-07-22] VITALS: Ht 193.4 cm; Wt 105.0 kg
[2021-07-22 09:53] VITALS: BP 148/95
[2021-07-22 10:13] LABS: BILIRUBIN,URINE NEGATIVE (NEGATIVE); CLARITY,URINE CLEAR; COLOR,URINE YELLOW; GLUCOSE, URINE (UA) NEGATIVE (NEGATIVE); KETONES,URINE NEGATIVE (NEGATIVE); LEUKOCYTE ESTERASE ,URINE NEGATIVE (NEGATIVE); NITRITE,URINE NEGATIVE (NEGATIVE); PH,URINE 5.5 (5-9); PROTEIN,URINE NEGATIVE (NEGATIVE)
[2021-07-22 10:15] LABS: BASOPHILS % (AUTO) 1 % (0-10); EOSINOPHILS # (AUTO) 0.2 10^3/uL (0.0-0.3); EOSINOPHILS % (AUTO) 5 % (0-10); HEMATOCRIT 42 % (40-54); HEMOGLOBIN 13.7 g/dL (13.3-17.7); LYMPHOCYTES # (AUTO) 1.1 10^3/uL (1.0-4.0); LYMPHOCYTES % (AUTO) 28 % (12-44); MEAN CORPUSCULAR HEMOGLOBIN 29 pg (25-34); MEAN CORPUSCULAR HGB CONC 33 g/dL (32-36); MEAN CORPUSCULAR VOLUME 89 fL (80-99); MEAN PLATELET VOLUME 9.1 fL (9.0-12.2); MONOCYTES # (AUTO) 0.4 10^3/uL (0.0-1.0); MONOCYTES % (AUTO) 11 % (0-12); NEUTROPHILS # (AUTO) 2.2 10^3/uL (1.8-7.8); NEUTROPHILS % (AUTO) 55 % (42-75); PLATELET COUNT 157 10^3/uL (130-400)
[2021-07-22 10:22] LABS: ALBUMIN 4.1 GM/DL (3.2-4.5); POTASSIUM 3.9 MMOL/L (3.6-5.0)
[2021-07-22 10:23] LABS: CALCIUM 9.3 MG/DL (8.5-10.1)
[2021-07-22 10:25] LABS: TOTAL PROTEIN 7.1 GM/DL (6.4-8.2)
[2021-07-22 10:26] LABS: BILIRUBIN,TOTAL 0.6 MG/DL (0.1-1.0)
[2021-07-22 10:28] LABS: CREATININE SERUM 0.95 MG/DL (0.60-1.30)
[2021-07-22 10:42] LABS: BACTERIA,URINE NEGATIVE /HPF
[2021-07-22 11:37] LABS: ERYTHROCYTE SEDIMENTATION RATE 15 MM/HR (0-30)
[2021-07-22 12:46] LABS: INR 0.9 (0.8-1.4); PROTHROMBIN TIME PATIENT 12.5 SEC (12.2-14.7)
== END 2021-07-22 10:24 ==
LOC: PREOP 09:37
PROVIDERS: ATTEND Orthopaedic Surgery
DX: Z01.812 Encounter for preprocedural laboratory examination (principal); M17.12 Unilateral primary osteoarthritis, left knee
CPT/HCPCS: 36415; 80053; 81000; 82308; 85025; 85610; 85652; 86850; 86900; 86901; 87081

== ENCOUNTER 2021-07-29 07:39 | Inpatient (IN) | payer OTHER ==
--- NOTE | 2021-07-22 08:24 | HISTORY AND PHYSICAL ---
DATE OF SERVICE: ADMISSION HISTORY AND PHYSICAL This will be for inpatient admission on 07/29/2021 for left total knee arthroplasty. The patient will require regular inpatient admission due to need for pain management, physical therapy and gait abnormalities. HISTORY OF PRESENT ILLNESS: The patient is a 65-year-old gentleman with complaints of progressively worsening left knee pain, stiffness and activity limitations. Radiographs reveal severe patellofemoral arthrosis. He reports pain on the anterior aspect of his knees. He reports difficulty with arising from a seated position with squatting. He reports difficulty with stairs. He denies paresthesias and radicular symptoms. He previously underwent a right total knee arthroplasty with good results and due to functional impairment, the patient elected to proceed with surgical intervention. REVIEW OF SYSTEMS: No chest pain, no shortness of breath, no dysuria. PAST MEDICAL HISTORY: Unremarkable. PAST SURGICAL HISTORY: Right knee arthroscopy, right shoulder rotator cuff. FAMILY HISTORY: Significant for coronary artery disease. PRIMARY CARE PROVIDER: Dr. Mohamud. MEDICATIONS: None. ALLERGIES: NO KNOWN DRUG ALLERGIES. SOCIAL HISTORY: The patient drinks alcohol socially. He is a former smoker. RADIOGRAPHS: Reveal complete loss of patellofemoral joint spaces with moderate medial joint space narrowing. PHYSICAL EXAMINATION: GENERAL: The patient is a well-developed, well-nourished, in no acute distress. HEENT: Normocephalic, atraumatic. Pupils are equal, round and reactive to light. Oropharynx is clear. NECK: Supple, with no lymphadenopathy. LUNGS: Clear to auscultation bilaterally. HEART: Regular rate and rhythm. ABDOMEN: Soft, nontender, nondistended. EXTREMITIES: The left knee demonstrates marked patellofemoral crepitus and pain with patellar loading. He has a slight effusion. There is no erythema or warmth. Range of motion is well maintained at 0/0/125. There is no varus valgus laxity. Negative anterior and posterior drawer. IMPRESSION: Severe left knee osteoarthritis. PLAN: Left total knee arthroplasty. The risks, benefits, options, ramifications and recovery were discussed at length with the patient. He understands and wishes to proceed. Job ID: [id number] DocumentID: [id number] Dictated Date: 07/15/2021 15:35:22 Care Transitions Nurse Date: 07/15/2021 15:53:16 Dictated By: MANJEET CORREA MD
[~2021-07-29] VITALS: Ht 193.4 cm; Wt 105.0 kg
[2021-07-29] VITALS (11 sets, daily range): BP systolic 82–149; BP diastolic 47–92
[2021-07-29] MEDS ORDERED: INTRA-ARTICULAR IU ONE ×5 (08:15)
[2021-07-29] MEDS ORDERED: LIDOCAINE PF 2% 5 ML (XYLOCAINE) VIAL ONE (08:27)
[2021-07-29] MEDS ORDERED: proPOfol 200 MG/20 ML (DIPRIVAN) VIAL IV ONE (08:27)
[2021-07-29] MEDS ORDERED: MIDAZOLAM 2 MG/2 ML (VERSED) VIAL ONE (08:27)
[2021-07-29] MEDS ORDERED: fentaNYL INJ 100 MCG/2 ML AMP ONE (08:27)
[2021-07-29] MEDS ORDERED: BUPIVACAINE 0.5% 30 ML (SENSORCAINE) VIAL ONE (08:30)
[2021-07-29] MEDS ORDERED: CEFUROXIME INJECTION 1,500 MG in NS (IVPB) 50 ML IV ONE (08:30)
[2021-07-29] MEDS ORDERED: TRANEXAMIC ACID 100 MG/ML 10 ML INJECTION ONE (08:45)
[2021-07-29] MEDS: LACTATED RINGERS 1,000 ML IV PRN ×2 (09:09→10:00)
[2021-07-29] MEDS ORDERED: NS (IVPB) 0 ML ONE (09:15)
--- NOTE | 2021-07-29 09:22 | Progress Note-Pre Operative ---
Pre-Operative Progress Note H&P Reviewed The H&P was reviewed, patient examined and no changes noted. Date Seen by Provider: Jul 29, 2021 Time Seen by Provider: 09:12 Date H&P Reviewed: Jul 29, 2021 Time H&P Reviewed: 07:11 Pre-Operative Diagnosis: left knee primary arthritis MANJEET CORREA MD Jul 29, 2021 09:22
--- NOTE | 2021-07-29 09:23 | Progress Note-Post Operative ---
Post-Operative Progess Note Surgeon (s)/Jet Aircraft Servicer (s) Surgeon MANJEET CORREA MD Jet Aircraft Servicer: Patrick Moy Pre-Operative Diagnosis left knee primary arthritis Post-Operative Diagnosis left knee primary arthritis Procedure & Operative Findings Date of Procedure 07/29/21 Procedure Performed/Findings left total knee arthroplasty Anesthesia Type GETA Estimated Blood Loss Estimated blood loss (mL): minimal Specimens/Packing Specimens Removed none Packing: none MANJEET CORREA MD Jul 29, 2021 09:23
--- NOTE | 2021-07-29 09:25 | D/C HH Face to Face Order ---
D/C Face to Face Orders Reconcile Patient Problems Problems Reviewed?: Yes Instructions for Patient Via [facility], Patient Instructions/FollowUp: three weeks Physician to follow Patient: three weeks Discharge Diet for Home: Regular Diet Patient Data-Allergies,Ht & Wt Patient Allergies: Coded Allergies: ondansetron (Unverified Allergy, Unknown, Anaphylaxis, 05/06/21) Home Health Need/Face to Face Date of Face to Face: Jul 29, 2021 Clinical Findings: Muscle weakness, Pain with ambulation I have seen Pt aept-sw-vrvi: Yes Discharged To: Home Diagnosis/Conditions: left total knee arthroplasty Patient is Homebound due to: Hector fall risk due to instabilty, Muscle w eakness, Pain w/ambulation Homebound Status Due to the above stated illness, injury or surgical procedure (medical condition or diagnosis) and associated clinical findings, the patient is homebound because of his/her inability to leave home except with aid of a supportive device and/or person AND leaving the home requires a considerable and taxing effort or is medically contraindicated. Pt req the following assistanc: Walker Home Health Nursing Orders Home Health Services Order: Physical Therapy-Evaluate & Treat DC left knee ioana and apply steri strips 08/12/21 Therapy Orders Therapy Orders: Physical Therapy, PT to assess for OT Therapy Specific Orders: Eval assistive deivces, Teach enviro modifications/safety, Gait training, Increase strength/endurance, Provider maintenance therapy, Restore ROM Certify Stmt I certify that this patient is under my care and that I, a nurse practitioner or a physician; a assistant manager airside operations working with me, had a face to face encounter that -me ets the physician face to face encounter requirements with this patient as dated. MANJEET CORREA MD Jul 29, 2021 09:25
[2021-07-29] MEDS ORDERED: SEVOFLURANE (ULTANE) 15 ML INHAL SOLN ONE ×3 (11:06→11:08)
--- NOTE | 2021-07-29 11:17 | Anesthesia-General Post-Op ---
General Patient Condition Mental Status/LOC: Same as Preop Cardiovascular: Satisfactory Nausea/Vomiting: Absent Respiratory: Satisfactory Pain: Controlled Complications: Absent Post Op Complications Complications None Follow Up Care/Instructions Patient Instructions None needed. Anesthesia/Patient Condition Patient Condition Patient is doing well, no complaints, stable vital signs, no apparent adverse anesthesia problems. No complications reported per nursing. KARLEE REYES CRNA Jul 29, 2021 11:17
[2021-07-29] MEDS: MEPERIDINE (DEMEROL) INJ 50 MG/ML IVP ONE ×2 (11:21→11:32)
[2021-07-29] MEDS ORDERED: PROMETHAZINE INJ 25 MG/ML (PHENERGAN) AMP IVP ONE (11:30)
[2021-07-29] MEDS ORDERED: morphine INJ 10 MG/ML 1ML (SYR OR VIAL) IVP ONE (11:30)
[2021-07-29] MEDS ORDERED: HYDROmorphone 2 MG/ML VIAL (DILAUDID) IV ONE (11:30)
[2021-07-29] MEDS ORDERED: MEPERIDINE (DEMEROL) INJ 50 MG/ML ONE (11:32)
--- NOTE | 2021-07-29 11:40 | Diagnostic Imaging Report ---
INDICATION: Osteoarthritis. FINDINGS: There are postsurgical changes of a left total knee arthroplasty. Hardware is in satisfactory position. No fracture or dislocation. Soft tissues grossly unremarkable. IMPRESSION: Stable postsurgical changes of a left knee arthroplasty. Dictated by: Dictated on workstation # [id number]
--- NOTE | 2021-07-29 11:54 | Progress Note ---
Standard Progress Note Progress Notes/Assess & Plan Date Seen by a Provider: Jul 29, 2021 Time Seen by a Provider: 11:52 Progress/Assessment & Plan post op check no complaints LLE--2 plus DP pulse with brisk cap refill intact DF and PF of toes and ankle with intact sensation to light touch throug hout s/p L TKA mobilize as able MANJEET CORREA MD Jul 29, 2021 11:54
[2021-07-29] MEDS ORDERED: diphenhydrAMINE 50 MG/ML INJ (BENADRYL) IVP PRN (12:00)
[2021-07-29] MEDS ORDERED: PROMETHAZINE INJ 25 MG/ML (PHENERGAN) AMP IVP PRN (12:00)
[2021-07-29] MEDS ORDERED: NALOXONE 0.4 MG/ML 1 ML (NARCAN) VIAL IV PRN (12:00)
[2021-07-29] MEDS ORDERED: morphine PCA 100 MG/100 ML BAG IV PRN (12:00)
--- NOTE | 2021-07-29 12:54 | Consultation - Hospitalist ---
HPI History of Present Illness: HPI/Chief Complaint Patient is 65-year-old male with past medical history of coronary artery disease who presented to the hospital for elective TKA under the care of Dr. Rosenberg. I am consulted for medical management. He has no complaints at this time and his pain is well controlled. Source: patient Date Seen 07/29/21 Attending Physician Karly Mohamud MD PCP Admitting Physician: Davion Rosenberg MD Attending Physician: Davion Rosenberg MD Referring Physician Date of Admission Jul 29, 2021 at 07:39 Home Medications & Allergies Home Medications Reviewed patient Home Medication Reconciliation performed by pharmacy medication reconciliations accessibility lift technician and/or nursing. Patients Allergies have been reviewed. Allergies Allergies Coded Allergies ondansetron (Unverified Allergy, Unknown, Anaphylaxis, 05/06/21) Past Prjyrrk-Zdstzv-Juigou Hx Patient Social History Marrital Status: Smoking Status: Never a Smoker Immunizations Up To Date First/Initial COVID19 Vaccinat: No Seasonal Allergies Seasonal Allergies: No Current Status Primary Language: French Past Medical History Surgeries: Orthopedic Currently Using CPAP: No Currently Using BIPAP: No Coronary Artery Disease Arthritis Family Medical History Reviewed Nursing Family Hx Review of Systems Constitutional: No chills, No fever Physical Exam Physical Exam Vital Signs Vital Signs - First Documented 07/29/21 08:00 Temp 36.8 Pulse 75 Resp 20 B/P (MAP) 126/80 (95) Pulse Ox 98 O2 Delivery Room Air Capillary Refill : Less Than 3 Seconds Height, Weight, BMI Height: '" Weight: lbs. oz. kg; 28.07 BMI Method: General Appearance: No Apparent Distress, WD/WN HEENT: PERRL/EOMI, Moist Mucous Membranes Respiratory: Lungs Clear, No Respiratory Distress Cardiovascular: Regular Rate, Rhythm, No Murmur Gastrointestinal: Normal Bowel Sounds, Non Tender, Soft Extremity: No Calf Tenderness, No Pedal Edema, Other (compression socks in place) Neurologic/Psychiatric: Alert, Oriented x3 Results Results/Procedures Labs Patient resulted labs reviewed. Imaging: Reviewed Imaging Report Imaging [facility] [place], [place] NAME: DENISE PAREDES [facility] REC#: [id number] PT STATUS: ADM IN : 1955 PHYSICIAN: JUJU NUÑEZ ADMIT DATE: 07/29/21 Signed Date of Exam:07/29/21 KNEE, LEFT, 2 VIEWS (AP & LAT) INDICATION: Osteoarthritis. FINDINGS: There are postsurgical changes of a left total knee arthroplasty. Hardware is in satisfactory position. No fracture or dislocation. Soft tissues grossly unremarkable. IMPRESSION: Stable postsurgical changes of a left knee arthroplasty. Dictated by: Dictated on workstation # [id number] Dict: 07/29/21 1138 Trans: 07/29/21 1249 [facility] [id number] Interpreted by: IRA MCALLISTER MD Electronically signed by: IRA MCALLISTER MD 07/29/21 1249 Assessment/Plan Assessment and Plan Assess & Plan/Chief Complaint Left knee OA s/p TKA Doing well postoperatively PT/OT Pain regimen Bowel regimen h/o CAD Takes not meds at thist nadya Monitor BP DVT ppx: Lovenox Will round prn, please call with any concerns Diagnosis/Problems Diagnosis/Problems (1) Osteoarthritis of left knee Qualifiers: Osteoarthritis type: primary Qualified Codes: M17.12 - Unilateral primary osteoarthritis, left knee LEIGH ANN YANCEY MD Jul 29, 2021 12:54
[2021-07-29] MEDS: NS IV 1000 ML 1,000 ML IV SCH (13:10)
--- NOTE | 2021-07-29 14:55 | Physical Therapy Evaluation ---
PT Evaluation-General Medical Diagnosis Admission Date Jul 29, 2021 at 07:39 Medical Diagnosis: left TKA Onset Date: Jul 29, 2021 Therapy Diagnosis Therapy Diagnosis: impaired mobility, ROM Precautions Precautions/Isolations: Fall Prevention, Standard Precautions Weight Bear Status Left Lower Extremity: Left Weight Bearing/Tolerated Referral Physician: Chinmay Reason for Referral: Evaluation/Treatment Medical History Additional Medical History PAST MEDICAL HISTORY: Unremarkable. PAST SURGICAL HISTORY: Right knee arthroscopy, right shoulder rotator cuff. Reviewed History: Yes Social History Current Living Status: Spouse Entry Into Home: Stairs With Railing PT Steps Into Home: 2 Prior Prior Level of Function SCALE: Activities may be completed with or without assistive devices. 3-Ysnjoxfsys-pautcqr completes the activity by him/herself with no assistance from a helper. 5-Set-up or Clean-up Assistance-helper sets up or cleans up; patient completes activity. [place] assists only prior to or following the activity. 4-Supervision or Touching Assistance-helper provides verbal cues and/or touching/steadying and/or contact guard assistance as patient completes activity. Assistance may be provided throughout the activity or intermittently. 3-Partial/Moderate Assistance-helper does LESS THAN HALF the effort. [place] lifts, holds or supports trunk or limbs, but provides less than half the effort. 2-Substantial/Maximal Assistance-helper does MORE THAN HALF the effort. [place] lifts or holds trunk or limbs and provides more than half the effort. 4-Gfpvpzjgb-qawgmt does ALL the effort. Patient does none of the effort to complete the activity. Or, the assistance of 2 or more helpers is required for the patient to complete the activity. If activity was not attempted, code reason: 7-Patient Refused. 9-Not Applicable-not attempted and the patient did not perform the activity before the current illness, exacerbation or injury. 10-Not Attempted due to Environmental Limitations-(lack of equipment, weather restraints, etc.). 88-Not Attempted due to Medical Conditions or Safety Concerns. Bed Mobility: 6 Transfers (B,C,W/C): 6 Gait: 6 Stairs: 6 Indoor Mobility (Ambulation): Independent Stairs: Independent PT Evaluation-Current Subjective Patient in bed pre tx, agrees to PT, has no complaints of pain at rest. Pt/Family Goals to be independent at home Objective Patient Orientation: Person, Place, Situation Attachments: IV ROM/Strength ROM Lower Extremities LLE knee flexion 85 degrees, extension +5 degrees Sensory Vision: Wears Glasses Hearing: Functional Sensation Right Lower Extremit: Intact Sensation Left Lower Extremity: Intact Transfers Roll Left to Right (QC): 4 Sit to Lying (QC): 4 Lying to Sitting/Side of Bed(Q: 4 Sit to Stand (QC): 4 SBA for supine <-> sit and sit <-> stand Gait Does the Patient Walk?: Yes Mode of Locomotion: Walk Anticipated Mode of Locomotion: Walk Walk 10 feet (QC): 4 Walk 50 ft with 2 Turns(QC): 4 Walk 150 ft (QC): 4 Distance: 150' Gait Assistive Device: FWW Comments/Gait Description SBA, decreased weight bearing on left leg, slow but steady ambulation Balance Sitting Static: Normal Sitting Dynamic: Normal Standing Static: Good Standing Dynamic: Good Treatment LLE total knee protocol x10 (AP, QS, DEL TORO, SAQ, SLR) Assessment/Needs Patient in bed post tx with nurse call, phone, tray, all needs met. Patient has impaired mobility, strength, ROM. Doing very well with both ROM and functional mobility Rehab Potential: Fair PT Halfway Goals Halfway Goals PT Halfway Goals Time Frame: Aug 05, 2021 Roll Left & Right (QC): 6 Sit to Lying (QC): 6 Lying-Sitting on Side/Bed(QC): 6 Sit to Stand (QC): 6 Chair/Pfw-rd-Mfzfp Xfer(QC): 6 Walk 10 feet (QC): 6 Walk 50ft with 2 Turns (QC): 6 Walk 150 ft (QC): 6 PT Plan Problem List Problem List: Activity Tolerance, Functional Strength, Safety, Balance, Gait, Transfer, ROM Treatment/Plan Treatment Plan: Continue Plan of Care Treatment Plan: Education, Functional Activity Anahy, Functional Strength, Gait, Safety, Therapeutic Exercise, Transfers Treatment Duration: Aug 05, 2021 Frequency: 11 times per week Estimated Hrs Per Day: .25 hour per day Patient and/or Family Agrees t: Yes Safety Risks/Education Patient Education: Gait Training, Transfer Techniques, Correct Positioning, Safety Issues Teaching Recipient: Patient Teaching Methods: Demonstration, Discussion Response to Teaching: Reinforcement Needed Discharge Recommendations Plan Patient will perform bed mobility and transfer training, balance and endurance training, functional strengthening, stair training, gait training, and education, to improve functional mobility and independence at home. Therapy Discharge Recommendati: Home & Family, Post Acute PT Time/GCodes Time In: 1420 Time Out: 1435 Total Billed Treatment Time: 15 Total Billed Treatment 1 visit EVL 15' VERENA EL PT Jul 29, 2021 14:55
--- NOTE | 2021-07-29 17:57 | OPERATIVE REPORT ---
DATE OF SERVICE: 07/29/2021 PREOPERATIVE DIAGNOSIS: Left knee primary osteoarthritis. POSTOPERATIVE DIAGNOSIS: Left knee primary osteoarthritis. PROCEDURE: Left total knee arthroplasty. SURGEON: Davion Correa MD CLIENT RELATIONSHIP MANAGER: Patrick Moy, who assisted throughout the procedure and closed the incision. ANESTHESIA: General endotracheal by Theo Guevara CRNA. TOURNIQUET TIME: Approximately 80 minutes at 300 mmHg. ESTIMATED BLOOD LOSS: Minimal. DRAINS: None. COMPLICATIONS: None. POSTOPERATIVE PLAN: Routine protocol. MATERIALS: Microport cemented size 7 femur, cemented size 7 tibia with a 10 mm insert and cemented size, 35 patellar button. STATEMENT OF MEDICAL NECESSITY: The patient is a 65-year-old active gentleman with complaints of progressively worsening left knee pain. Radiographs revealed severe patellofemoral arthritis with moderate medial patellofemoral arthrosis. He tried rest, activity modifications, anti-inflammatories without relief. Due to functional impairment and failure to improve with conservative measures, the patient elected to proceed with surgical intervention. DESCRIPTION OF PROCEDURE: After risks and benefits of procedure were discussed and questions were answered, an informed consent was signed and placed on chart, the operative site was confirmed in the preoperative holding area initialed by the surgeon. The patient was then transferred to the operating room and after adequate levels of general endotracheal anesthetic were obtained. A timeout was called, confirming the operative site. The left lower extremity was prepped and draped in the usual sterile fashion with the leg elevated. Tourniquet was inflated to 300 mmHg. Standard anterior approach was utilized. Hemostasis was obtained with cautery. Medial parapatellar arthrotomy was performed leaving 1 cm cuff on the patella for later reattachment. The fat pad was resected. A subperiosteal release was performed in the proximal medial tibia being careful to stay on the bony surface. The ACL was resected. The intramedullary guide was passed into the femoral canal and the distal cutting block was placed. Distal cut was made, the femur sized to a size 7, 7 cutting block was placed parallel to the epicondylar axis and cuts were made from posterior to anterior. Subperiosteal release was then carefully performed on the posterior distal femur, being careful to stay on the bony surface. A portion of the PCL was resected due to tightness in flexion. The intramedullary guide was then passed into the tibia. The cutting block was placed. The drop augustine transected the intermalleolar axis and the cut was made. The 7 baseplate was placed and the drop augustine transected the mid intermalleolar axis. This was then prepared with the drill and keel punch. The trials were inserted with 10 mm insert. The patella was then prepared by resecting 10 mm off the undersurface. The peg guide was placed and peg holes were drilled. The 35 trial was placed. The knee was taken through range of motion. The patient had greater than 130 degrees of flexion with gravity. The patella tracked well. There was no anterior/posterior or medial/lateral laxity in flexion or extension. The patient could be brought to full extension, but was slightly tight in extension, but this was felt to be acceptable. The trials were removed. The joint was irrigated with pulse lavage. The periarticular block was placed in the posterior capsule, medial and lateral retinaculum extensor mechanism subcutaneous tissues. Bone ends were irrigated and dried and the tibial baseplate was cemented into position. Excessive cement was removed. Superior surface of the tibia was irrigated and dried and the polyethylene insert was placed. The distal femur was irrigated and dried. The femoral prosthesis was cemented into position. Excessive cement was removed. The knee was brought out into full extension until cement had cured. The undersurface of patella was irrigated and dried. The patellar button was cemented into position. Excessive cement was removed. Once the cement had cured, the knee was taken through range of motion. Full extension was easily obtained, greater than 120 degrees of flexion with gravity was easily obtained. The patella tracked well. There was no anterior/posterior or medial/lateral laxity in flexion or extension. Full extension was easily obtained. The joint was further irrigated with pulse lavage. Arthrotomy was closed with #2 Tevdek in qflbkz-fj-bdejr interrupted fashion. Knee was flexed and the repair was stable. The subcutaneous tissues were irrigated and dried using a total of 6 liters throughout the procedure. A 0 Vicryl was used to close the deep subcutaneous layer, 2-0 Vicryl for the superficial subcutaneous layer, ioana used on the skin. A soft dressing was applied. The tourniquet was deflated. The patient was transferred to recovery room awake and in stable condition. Job ID: [id number] DocumentID: [id number] Dictated Date: 07/29/2021 11:14:53 Branch Retail Executive Date: 07/29/2021 17:57:04 Dictated By: DAVION CORREA MD
[2021-07-29] MEDS: CEFUROXIME INJECTION 750 MG in NS (IVPB) 50 ML IV SCH (21:08)
[2021-07-29] MEDS: SENNA W/DOCUSATE (SENOKOT S) TABLET PO SCH (21:08)
[2021-07-30 00:05] VITALS: BP 116/70
[2021-07-30] MEDS: NS IV 1000 ML 1,000 ML IV SCH ×3 (00:05→23:01)
[2021-07-30] MEDS: CEFUROXIME INJECTION 750 MG in NS (IVPB) 50 ML IV SCH (03:56)
[2021-07-30 03:57] VITALS: BP 149/87
[2021-07-30] MEDS: MULTIVIT W/MINERALS TAB (THERAGRAN M) PO SCH (05:58)
[2021-07-30 07:41] VITALS: BP 138/75
--- NOTE | 2021-07-30 07:47 | Progress Note ---
Standard Progress Note Progress Notes/Assess & Plan Date Seen by a Provider: Jul 30, 2021 Time Seen by a Provider: 07:46 Progress/Assessment & Plan post op check no complaints LLE--2 plus DP pulse with brisk cap refill intact DF and PF of toes and ankle with intact sensation to light touch throug hout s/p L TKA mobilize as able Final Diagnosis no complaints Radiographs--HW well positioned without fracture Vital Signs Date Time Temp Pulse Resp B/P (MAP) Pulse Ox O2 Delivery O2 Flow Rate FiO2 07/30/21 07:41 36.5 62 18 138/75 (96) 97 Room Air 07/30/21 03:57 36.8 68 18 149/87 (107) 97 Room Air 07/30/21 00:05 37.0 66 20 116/70 (85) 95 Room Air 07/29/21 20:50 Room Air 07/29/21 20:23 36.6 75 19 130/55 (80) 95 Room Air 07/29/21 16:21 36.5 66 18 148/76 (100) 97 Room Air 07/29/21 13:01 36.0 81 19 135/86 (102) 93 Room Air 07/29/21 12:15 36.1 20 135/90 (105) 95 Room Air 07/29/21 12:15 Room Air 07/29/21 12:00 Room Air 07/29/21 12:00 20 146/85 (105) 93 Room Air 07/29/21 11:50 20 146/85 (105) 63 Room Air 07/29/21 11:45 OxyMask 3 07/29/21 11:40 20 139/92 (108) 96 OxyMask 6 07/29/21 11:30 20 149/86 (107) 98 OxyMask 6 07/29/21 11:30 OxyMask 3 07/29/21 11:20 20 87/58 (68) 95 OxyMask 6 07/29/21 11:15 OxyMask 8 07/29/21 11:12 36.1 20 82/47 (59) 98 OxyMask 8 07/29/21 11:12 OxyMask 8 07/29/21 08:00 36.8 75 20 126/80 (95) 98 Room Air I & O 07/30/21 07:00 Intake Total 3295 ml Output Total 2970 ml Balance 325 ml LLE--NVI distally. No calf tenderness. Neg Tomer's s/p JUVENTINO PT/OT MANJEET CORREA MD Jul 30, 2021 07:47
[2021-07-30] MEDS: SENNA W/DOCUSATE (SENOKOT S) TABLET PO SCH ×2 (08:41→20:20)
[2021-07-30] MEDS: ENOXAPARIN INJECTION 30 MG/0.3 ML SYR SC SCH ×2 (08:41→20:19)
[2021-07-30] MEDS: ASPIRIN E.C. 81 MG (ECOTRIN) TAB PO SCH (08:41)
--- NOTE | 2021-07-30 08:48 | Physical Therapy Daily Note ---
PT Daily Note-Current Subjective Patient in bed pre tx, agrees to PT, has 5/10 pain in left knee. Appearance Patient in restroom on toilet post tx, instructed to use nurse call when done. Mental Status Patient Orientation: Normal For Age Attachments: IV Transfers SCALE: Activities may be completed with or without assistive devices. 8-Grfxsolouv-zslwtba completes the activity by him/herself with no assistance from a helper. 5-Set-up or Clean-up Assistance-helper sets up or cleans up; patient completes activity. [place] assists only prior to or following the activity. 4-Supervision or Touching Assistance-helper provides verbal cues and/or touching/steadying and/or contact guard assistance as patient completes activity. Assistance may be provided throughout the activity or intermittently. 3-Partial/Moderate Assistance-helper does LESS THAN HALF the effort. [place] lifts, holds or supports trunk or limbs, but provides less than half the effort. 2-Substantial/Maximal Assistance-helper does MORE THAN HALF the effort. [place] lifts or holds trunk or limbs and provides more than half the effort. 9-Fxftehphm-rdghug does ALL the effort. Patient does none of the effort to complete the activity. Or, the assistance of 2 or more helpers is required for the patient to complete the activity. If activity was not attempted, code reason: 7-Patient Refused. 9-Not Applicable-not attempted and the patient did not perform the activity before the current illness, exacerbation or injury. 10-Not Attempted due to Environmental Limitations-(lack of equipment, weather restraints, etc.). 88-Not Attempted due to Medical Conditions or Safety Concerns. Roll Left & Right (QC): 6 Lying to Sitting/Side of Bed(Q: 6 Sit to Stand (QC): 6 Chair/Pbq-ls-Nzzzt Xfer(QC): 4 Weight Bearing Left Lower Extremity: Left Weight Bearing/Tolerated Gait Training Distance: 300' Walk 10 feet (QC): 4 Walk 50 ft with 2 Turns(QC): 4 Walk 150 ft (QC): 4 Gait Persons Needed: 1 Gait Assistive Device: FWW SBA, slow but steady ambulation, decreased left knee flexion during swing though Exercises Supine Ex: Ankle pumps, Quad Set, Heel Slides, Short Arc Quads, Straight leg raise Supine Reps: 15 Treatments bed mobility and transfers, ambulation, LE exercise Assessment Current Status: Fair Progress good, steady improvement in functional mobility and knee function PT Mcfp Goals Mcfp Goals PT Health Navigator Goals Time Frame: Aug 05, 2021 Roll Left & Right (QC): 6 Sit to Lying (QC): 6 Lying-Sitting on Side/Bed(QC): 6 Sit to Stand (QC): 6 Chair/Oyq-vt-Xtmum Xfer(QC): 6 Walk 10 feet (QC): 6 Walk 50ft with 2 Turns (QC): 6 Walk 150 ft (QC): 6 PT Plan Problem List Problem List: Activity Tolerance, Functional Strength, Safety, Balance, Gait, Transfer, ROM Treatment/Plan Treatment Plan: Continue Plan of Care Treatment Plan: Education, Functional Activity Anahy, Functional Strength, Gait, Safety, Therapeutic Exercise, Transfers Treatment Duration: Aug 05, 2021 Frequency: 11 times per week Estimated Hrs Per Day: .25 hour per day Patient and/or Family Agrees t: Yes Safety Risks/Education Patient Education: Gait Training, Transfer Techniques, Correct Positioning, Safety Issues Teaching Recipient: Patient Teaching Methods: Demonstration, Discussion Response to Teaching: Reinforcement Needed Time/GCodes Time In: 810 Time Out: 822 Total Billed Treatment Time: 12 Total Billed Treatment 1 visit FA 12VERENA LIRIANO PT Jul 30, 2021 08:48
--- NOTE | 2021-07-30 10:34 | Occupational Therapy Eval ---
OT Evaluation-General/PLF Medical Diagnosis Admission Date Jul 29, 2021 at 07:39 Medical Diagnosis: left TKA Onset Date: Jul 29, 2021 Therapy Diagnosis Therapy Diagnosis: decreased ADL status Precautions Precautions/Isolations: Fall Prevention, Standard Precautions Referral Physician: Chinmay Referral Reason: Evaluation/Treatment Medical History Additional Medical History R rotator cuff, R TKA, CAD, arthritis Current History s/p L TKA 07/29/21 Social History Current Living Status: Spouse Entry Into Home: Stairs With Railing Steps Into Home: 2 ADL-Prior Level of Function SCALE: Activities may be completed with or without assistive devices. 3-Ywgggsfuxw-keyypys completes the activity by him/herself with no assistance from a helper. 5-Set-up or Clean-up Assistance-helper sets up or cleans up; patient completes activity. [place] assists only prior to or following the activity. 4-Supervision or Touching Assistance-helper provides verbal cues and/or touching/steadying and/or contact guard assistance as patient completes a ctivity. Assistance may be provided throughout the activity or intermittently. 3-Partial/Moderate Assistance-helper does LESS THAN HALF the effort. [place] lifts, holds or supports trunk or limbs, but provides less than half the effort. 2-Substantial/Maximal Assistance-helper does MORE THAN HALF the effort. [place] lifts or holds trunk or limbs and provides more than half the effort. 4-Ancthyzvu-zehpzb does ALL the effort. Patient does none of the effort to complete the activity. Or, the assistance of 2 or more helpers is required for the patient to complete the activity. If activity was not attempted, code reason: 7-Patient Refused. 9-Not Applicable-not attempted and the patient did not perform the activity before the current illness, exacerbation or injury. 10-Not Attempted due to Environmental Limitations-(lack of equipment, weather restraints, etc.). 88-Not Attempted due to Medical Conditions or Safety Concerns. ADL PLOF Comments Pt reports IND with ADLs and functional mobility at PLOF, no AD. Self Care: Independent Functional Cognition: Independent DME/Equipment: Bath Bench, Tub/Shower OT Current Status Subjective Pt in recliner, agreeable to OT tx. Pt denies concerns with ADLs upon discharging home, he has had a knee replacement earlier this year and knows what to expect. His is physically able to assist with LB dressing as needed. Mental Status/Objective Patient Orientation: Person, Place, Time, Situation, Normal For Age Attachments: IV, Polar Pack Current Upper Extremity ROM WFL Upper Extremity Strength WFL ADL-Treatment Eating (QC): 6 Oral Hygiene (QC): 6 (Per pt report.) Upper Body Dressing (QC): 6 (Per pt report) Lower Body Dressing (QC): 3 (Per pt report, some assistance needed with LLE due to pain. able to assist at home.) On/Off Footwear (QC): 3 (Per pt report, some assistance needed with LLE due to pain. able to assist at home.) Other Treatments Pt up in recliner, agreeable to OT Tx. Pt educated on purpose and benefit of OT. Pt reports he lives with his and she is able to assist him with LB dressing as needed. Pt has no concerns with his ability to complete ADLs at discharge with assistance. OT provided education on miniature model maker for LB dressing and for picking up objects off of floor, he verbalized understanding. Pt declines fu rther OT services at this time, instructed to inform nurse if further concerns arise. Post tx, pt in recliner, call light in reach and all needs met. Education OT Patient Education: Correct positioning, Energy conservation, Modified ADL techniques, Progress toward Goal/Update tx plan, Purpose of tx/functional activities, Rehab process, Use of adapted equipment Teaching Recipient: Patient Teaching Methods: Discussion Response to Teaching: Verbalize Understanding OT Fpc Goals Fpc Goals 1=Demonstrate adherence to instructed precautions during ADL tasks. 2=Patient will verbalize/demonstrate understanding of assistive d evices/modifications for ADL. 3=Patient will improve strength/tolerance for activity to enable patient to perform ADL's. OT Education/Plan Problem List/Assessment Assessment: No Skilled OT Needs ID'd Pt has deficit in LB dressing due to pain, pt has no concerns with this as his is able to assist while he heals and until pain decreases. Pt declines further OT services, d/c from OT. If further concerns with ADLs arise, please send new OT orders. Discharge Recommendations Plan/Recommendations: Discharge/Goals Met Treatment Plan/Plan of Care Patient would benefit from OT for education, treatment and training to promote independence in ADL's, mobility, safety and/or upper extremity function for ADL's. Plan of Care: ADL Retraining, Functional Mobility Treatment Duration: Jul 30, 2021 Frequency: 1 time per week (eval only) Estimated Hrs Per Day: .25 hour per day Agreement: Yes Rehab Potential: Fair Time/GCodes Start Time: 09:45 Stop Time: 09:57 Total Time Billed (hr/min): 12 Billed Treatment Time 1, SAMIRA MCKINNEY OT Jul 30, 2021 10:34
[2021-07-30 11:36] VITALS: BP 126/82
--- NOTE | 2021-07-30 13:49 | Physical Therapy Daily Note ---
PT Daily Note-Current Subjective Pt. states "this knee is completely different than the 1st one" Pt. rates pain in left knee at 4/10 at rest and 8/10 with exercise and gait. Pain Numeric Pain Scale: 8 Location: Left Location Body Site: Knee Pain Description: Burning Mental Status Patient Orientation: Normal For Age Attachments: Other-See Comments (polar pack), IV Transfers SCALE: Activities may be completed with or without assistive devices. 1-Aowggfquwk-kzvcyde completes the activity by him/herself with no assistance from a helper. 5-Set-up or Clean-up Assistance-helper sets up or cleans up; patient completes activity. [place] assists only prior to or following the activity. 4-Supervision or Touching Assistance-helper provides verbal cues and/or touching/steadying and/or contact guard assistance as patient completes activity. Assistance may be provided throughout the activity or intermittently. 3-Partial/Moderate Assistance-helper does LESS THAN HALF the effort. [place] lifts, holds or supports trunk or limbs, but provides less than half the effort. 2-Substantial/Maximal Assistance-helper does MORE THAN HALF the effort. [place] lifts or holds trunk or limbs and provides more than half the effort. 1-Tgwmyjwbi-tgmjjp does ALL the effort. Patient does none of the effort to complete the activity. Or, the assistance of 2 or more helpers is required for the patient to complete the activity. If activity was not attempted, code reason: 7-Patient Refused. 9-Not Applicable-not attempted and the patient did not perform the activity before the current illness, exacerbation or injury. 10-Not Attempted due to Environmental Limitations-(lack of equipment, weather restraints, etc.). 88-Not Attempted due to Medical Conditions or Safety Concerns. Sit to Lying (QC): 6 Sit to Stand (QC): 6 Chair/Bqa-dz-Mokps Xfer(QC): 6 Weight Bearing Left Lower Extremity: Left Weight Bearing/Tolerated Gait Training Does the Patient Walk?: Yes Walk 150 ft (QC): 4 Gait Persons Needed: 1 Gait Assistive Device: FWW 175 ft x 1 assist for IV CGA, instruction for heel strike and knee ext left. heavy wt on FWW, WBAT L Exercises Supine Ex: Ankle pumps, Quad Set, Heel Slides, Short Arc Quads, Straight leg raise Supine Reps: 12 Seated Therapy Exercises: Ankle pumps, Sit to stand, Long arc quads, Hamstring Curls Seated Reps: 15 Treatments as above, in bed after Rx, ricci at hand, Polar pack insitu Assessment Current Status: Good Progress AROM approx 10 to 90 deg PT Billing Manager Goals Billing Manager Goals PT Billing Manager Goals Time Frame: Aug 05, 2021 Roll Left & Right (QC): 6 Sit to Lying (QC): 6 Lying-Sitting on Side/Bed(QC): 6 Sit to Stand (QC): 6 Chair/Gvl-zo-Foptv Xfer(QC): 6 Walk 10 feet (QC): 6 Walk 50ft with 2 Turns (QC): 6 Walk 150 ft (QC): 6 PT Plan Treatment/Plan Treatment Plan: Continue Plan of Care Treatment Plan: Education, Functional Activity Anahy, Functional Strength, Gait, Safety, Therapeutic Exercise, Transfers Treatment Duration: Aug 05, 2021 Frequency: 11 times per week Estimated Hrs Per Day: .25 hour per day Patient and/or Family Agrees t: Yes Safety Risks/Education Patient Education: Gait Training, Transfer Techniques, Correct Positioning, Disease Process Teaching Recipient: Patient Teaching Methods: Discussion Response to Teaching: Return Demonstration, Reinforcement Needed Time/GCodes Time In: 1320 Time Out: 1345 Total Billed Treatment Time: 25 Total Billed Treatment 1,[id number] KENNY CLIFFORD PULLMAN CONDUCTOR Jul 30, 2021 13:49
[2021-07-30 16:11] VITALS: BP 127/70
[2021-07-30] MEDS: oxyCODONE/APAP 5/325MG (PERCOCET 5) TABLET PO PRN ×2 (17:16→22:58)
[2021-07-30 19:24] VITALS: BP 131/75
[2021-07-31 00:14] VITALS: BP 140/74
--- NOTE | 2021-07-31 01:01 | DISCHARGE SUMMARY ---
DATE OF SERVICE: DIAGNOSIS: Left knee primary osteoarthritis. PROCEDURE: Left total knee arthroplasty. SUMMARY: The patient is a 65-year-old gentleman who underwent a left total knee arthroplasty on the day of admission. Postoperatively, he did well. At the time of discharge, his wound was clean and dry, had no calf tenderness. Negative Homans sign. CONDITION AT DISCHARGE: Good. DISCHARGE DIET: Regular. FOLLOWUP: Followup is in three weeks. ACTIVITIES: Weightbearing as tolerated with assistive devices as needed. DISCHARGE MEDICATIONS: Home medications. One aspirin per day for 30 days and Percocet as needed for pain. Job ID: [id number] DocumentID: [id number] Dictated Date: 07/30/2021 07:48:54 Store Coordinator Date: 07/31/2021 01:01:04 Dictated By: MANJEET CORREA MD
[2021-07-31 04:00] VITALS: BP 152/74
[2021-07-31] MEDS: MULTIVIT W/MINERALS TAB (THERAGRAN M) PO SCH (06:17)
[2021-07-31] MEDS: oxyCODONE/APAP 5/325MG (PERCOCET 5) TABLET PO PRN ×2 (06:20→09:06)
--- NOTE | 2021-07-31 06:56 | Progress Note ---
Standard Progress Note Progress Notes/Assess & Plan Date Seen by a Provider: Jul 31, 2021 Time Seen by a Provider: 06:54 Progress/Assessment & Plan post op check no complaints LLE--2 plus DP pulse with brisk cap refill intact DF and PF of toes and ankle with intact sensation to light touch throug hout s/p L TKA mobilize as able Final Diagnosis no complaints Vital Signs Date Time Temp Pulse Resp B/P (MAP) Pulse Ox O2 Delivery O2 Flow Rate FiO2 07/31/21 04:00 36.6 82 17 152/74 (100) 96 Room Air 07/31/21 00:14 37.4 94 20 140/74 (96) 95 Room Air 07/30/21 20:20 Room Air 07/30/21 19:24 37.1 90 18 131/75 (93) 97 Room Air 07/30/21 16:11 36.6 99 20 127/70 (89) 95 Room Air 07/30/21 11:36 36.7 70 18 126/82 (97) 96 Room Air 07/30/21 09:00 Room Air 07/30/21 07:41 36.5 62 18 138/75 (96) 97 Room Air I & O 07/31/21 07:00 Intake Total 2700 ml Output Total 3325 ml Balance -625 ml LLE--incision clean and dry. No calf tenderness. able to perform knee extension flexion to 90 deg s/p LTKA doing well PT then DC home MANJEET CORREA MD Jul 31, 2021 06:55
[2021-07-31] MEDS ORDERED: morphine INJ 4 MG/ML 1 ML (VIAL/SYRINGE) IVP PRN ×2 (07:00)
[2021-07-31] MEDS ORDERED: OXYC1TAB11 PO (07:00)
[2021-07-31 08:08] VITALS: BP 134/77
[2021-07-31] MEDS: ENOXAPARIN INJECTION 30 MG/0.3 ML SYR SC SCH (08:24)
[2021-07-31] MEDS: SENNA W/DOCUSATE (SENOKOT S) TABLET PO SCH (08:25)
[2021-07-31] MEDS: ASPIRIN E.C. 81 MG (ECOTRIN) TAB PO SCH (08:25)
--- NOTE | 2021-07-31 10:01 | Physical Therapy Daily Note ---
PT Daily Note-Current Subjective Patient sitting in chair upon PT arrival, in the room, both agreeable to treatment. Patient reports he hasn't been sitting long but his knee is very stiff and rates pain at 10/10. Reports he has 2 steps to get into his house with left sided handrail. Mental Status Patient Orientation: Person, Place, Time, Situation Transfers SCALE: Activities may be completed with or without assistive devices. 2-Iahrognncx-shmlhma completes the activity by him/herself with no assistance from a helper. 5-Set-up or Clean-up Assistance-helper sets up or cleans up; patient completes activity. [place] assists only prior to or following the activity. 4-Supervision or Touching Assistance-helper provides verbal cues and/or touching/steadying and/or contact guard assistance as patient completes activity. Assistance may be provided throughout the activity or intermittently. 3-Partial/Moderate Assistance-helper does LESS THAN HALF the effort. [place] lifts, holds or supports trunk or limbs, but provides less than half the effort. 2-Substantial/Maximal Assistance-helper does MORE THAN HALF the effort. [place] lifts or holds trunk or limbs and provides more than half the effort. 4-Iemzuwuml-vpxzxi does ALL the effort. Patient does none of the effort to complete the activity. Or, the assistance of 2 or more helpers is required for the patient to complete the activity. If activity was not attempted, code reason: 7-Patient Refused. 9-Not Applicable-not attempted and the patient did not perform the activity before the current illness, exacerbation or injury. 10-Not Attempted due to Environmental Limitations-(lack of equipment, weather restraints, etc.). 88-Not Attempted due to Medical Conditions or Safety Concerns. Sit to Stand (QC): 6 Chair/Fnk-jw-Jdtpa Xfer(QC): 6 Weight Bearing Left Lower Extremity: Left Weight Bearing/Tolerated Gait Training Does the Patient Walk?: Yes Distance: 200 Walk 10 feet (QC): 6 Walk 50 ft with 2 Turns(QC): 6 Walk 150 ft (QC): 6 Gait Assistive Device: FWW Stair Training Stair Training: Handrails/: 1 handrail #of Steps: 2 1 Step (curb) (QC): 4 Stairs: Pattern: Step to Assessment Current Status: Good Progress Patient tolerated treatment well. Demonstrates significant loss of left TKE in standing and during gait. Encouraged to slow down gait speed and emphasize left TKE during stance phase to accentuate amount of knee extension and obtain functional ROM jose e. Patient ascends/descends 2 steps with left handrail ascending and FWW turned to provide support for right UE ascending, with verbal cues and CGA. Patient ambulates 200 feet total with [place] and verbal cues for left TKE. Patient in chair post treatment with all needs met, nursing notified, in the room. PT Fpc Goals Fpc Goals PT Fpc Goals Time Frame: Aug 05, 2021 Roll Left & Right (QC): 6 (Met) Sit to Lying (QC): 6 (Met) Lying-Sitting on Side/Bed(QC): 6 (Met) Sit to Stand (QC): 6 (Met) Chair/Fvc-ec-Wfiwf Xfer(QC): 6 Walk 10 feet (QC): 6 (Met) Walk 50ft with 2 Turns (QC): 6 (Met) Walk 150 ft (QC): 6 PT Plan Treatment/Plan Treatment Plan: Discontinue PT, goals met Treatment Plan: Education, Functional Activity Anahy, Functional Strength, Gait, Safety, Therapeutic Exercise, Transfers Treatment Duration: Aug 05, 2021 Frequency: 11 times per week Estimated Hrs Per Day: .25 hour per day Patient and/or Family Agrees t: Yes Safety Risks/Education Patient Education: Gait Training, Steps Teaching Recipient: Patient Teaching Methods: Demonstration, Discussion Response to Teaching: Verbalize Understanding, Return Demonstration Time/GCodes Time In: 912 Time Out: 922 Total Billed Treatment Time: 10 Total Billed Treatment Visit, Gait GIANCARLO MIKE PT Jul 31, 2021 10:01
== END 2021-07-31 09:20 | disposition home or self-care (01) | DRG 470 ==
LOC: 4TH 07:39 → SURG 07:40 → 4TH 12:45
PROVIDERS: ADMIT Orthopaedic Surgery; ATTEND Orthopaedic Surgery
PROC: 0SRD0J9 Replacement of Left Knee Joint with Synthetic Substitute, Cemented, Open Approach (ICD-10-PCS; principal; 2021-07-29 09:23)
DX: M17.12 Unilateral primary osteoarthritis, left knee (principal); I25.10 Atherosclerotic heart disease of native coronary artery without angina pectoris
CPT/HCPCS: 73560; 86850; 86900; 86901; 87081

== ENCOUNTER 2021-08-20 14:41 | Outpatient (CLI) | payer OTHER ==
[~2021-08-20 14:41] MED LIST: OXYC1TAB11 PO
== END 2021-08-20 15:27 | disposition home or self-care (01) ==
LOC: PREOP 14:41
PROVIDERS: ATTEND Orthopaedic Surgery
DX: Z01.818 Encounter for other preprocedural examination (principal)

== ENCOUNTER 2021-08-26 09:21 | Inpatient (IN) | payer OTHER ==
--- NOTE | 2021-08-20 20:56 | HISTORY AND PHYSICAL ---
DATE OF SERVICE: ADMISSION HISTORY AND PHYSICAL DATE OF ADMISSION: 08/26/2021 for left total knee arthroplasty revision. The patient will require regular inpatient admission due to need for physical therapy and pain management. HISTORY OF PRESENT ILLNESS: The patient is a 65-year-old gentleman who underwent a left total knee arthroplasty three weeks ago and has had patellar instability since one week postoperatively. He can demonstrate active subluxation of the patella, which is causing feelings of instability. Radiographs reveal well fixed components. Due to instability, it was recommended the patient undergo operative fixation. REVIEW OF SYSTEMS: No chest pain, no shortness of breath, no dysuria. PAST MEDICAL HISTORY: Unremarkable. PAST SURGICAL HISTORY: Right total knee arthroplasty, right knee arthroscopy, right rotator cuff, left total knee arthroplasty. FAMILY HISTORY: Significant for coronary artery disease. PRIMARY CARE PROVIDER: Dr. Mohamud. MEDICATIONS: None. ALLERGIES: No known drug allergies. SOCIAL HISTORY: The patient drinks alcohol socially. He is a former smoker. PHYSICAL EXAMINATION: GENERAL: The patient is well-developed, well-nourished, in no acute distress. HEENT: Normocephalic, atraumatic. Pupils are equal, round and reactive to light. Oropharynx is clear. NECK: Supple, no lymphadenopathy. LUNGS: Clear to auscultation bilaterally. HEART: Regular rate and rhythm. ABDOMEN: Soft, nontender, nondistended. EXTREMITIES: The left knee demonstrates well healed incision. There is no erythema or warmth. He could demonstrate active subluxation when moving from flexion to extension. When he holds his foot in external rotation, external rotation is more accentuated. IMPRESSION: Left patellar instability, status post total knee arthroplasty. PLAN: Left total knee arthroplasty revision. The risks, benefits, options, ramifications and recovery were discussed with the patient. He understands and wishes to proceed. Job ID: [id number] DocumentID: [id number] Dictated Date: 08/18/2021 14:25:04 Wet Machine Cutter Date: 08/18/2021 14:43:36 Dictated By: MANJEET CORREA MD
[2021-08-26] VITALS (11 sets, daily range): BP systolic 121–154; BP diastolic 84–99
[~2021-08-26] VITALS: Ht 193 cm; Wt 105.0 kg
[2021-08-26] MEDS ORDERED: diphenhydrAMINE 50 MG/ML INJ (BENADRYL) IVP PRN (09:30)
[2021-08-26] MEDS ORDERED: NALOXONE 0.4 MG/ML 1 ML (NARCAN) VIAL IV PRN (09:30)
[2021-08-26] MEDS ORDERED: PROMETHAZINE INJ 25 MG/ML (PHENERGAN) AMP IVP PRN (09:30)
[2021-08-26] MEDS ORDERED: morphine PCA 100 MG/100 ML BAG IV PRN (09:30)
[2021-08-26] MEDS ORDERED: CEFUROXIME INJECTION 1,500 MG in NS (IVPB) 50 ML IV ONE (10:00)
[2021-08-26] MEDS ORDERED: CEFUROXIME 1.5 GM/15 ML (ZINACEF) VIAL ONE ×2 (10:17→10:25)
[2021-08-26] MEDS ORDERED: LIDOCAINE PF 2% 5 ML (XYLOCAINE) VIAL ONE (10:19)
[2021-08-26] MEDS ORDERED: MIDAZOLAM 2 MG/2 ML (VERSED) VIAL ONE (10:19)
[2021-08-26] MEDS ORDERED: ROPIVACAINE 5MG/ML 30ML VIAL ONE (10:19)
[2021-08-26] MEDS ORDERED: proPOfol 200 MG/20 ML (DIPRIVAN) VIAL IV ONE (10:20)
[2021-08-26] MEDS ORDERED: NS (IVPB) 100 ML ONE (10:25)
[2021-08-26] MEDS ORDERED: fentaNYL INJ 100 MCG/2 ML AMP ONE (10:26)
[2021-08-26] MEDS: LACTATED RINGERS 1,000 ML IV PRN ×2 (10:35→12:43)
--- NOTE | 2021-08-26 10:49 | Progress Note-Post Operative ---
Post-Operative Progess Note Surgeon (s)/Patent Paralegal (s) Surgeon MANJEET CORREA MD Patent Paralegal: Patrick Moy Pre-Operative Diagnosis left patella instability status post total knee arthroplasty Post-Operative Diagnosis left patella instability status post total knee arthroplasty Procedure & Operative Findings Date of Procedure 08/26/21 Procedure Performed/Findings left total arthroplasty reivsion Anesthesia Type GETA Estimated Blood Loss Estimated blood loss (mL): minimal Specimens/Packing Specimens Removed femoral prosthesis Packing: none MANJEET CORREA MD Aug 26, 2021 10:49
--- NOTE | 2021-08-26 10:49 | Progress Note-Pre Operative ---
Pre-Operative Progress Note H&P Reviewed The H&P was reviewed, patient examined and no changes noted. Date Seen by Provider: Aug 26, 2021 Time Seen by Provider: 10:48 Date H&P Reviewed: Aug 26, 2021 Time H&P Reviewed: 10:48 Pre-Operative Diagnosis: left patella instability status post total knee arthroplasty MANJEET CORREA MD Aug 26, 2021 10:49
[2021-08-26] MEDS ORDERED: HYDROmorphone 2 MG/ML VIAL (DILAUDID) ONE (12:45)
[2021-08-26] MEDS ORDERED: LABETALOL HCL 20 MG/4 ML VIAL ONE (13:08)
[2021-08-26] MEDS ORDERED: SEVOFLURANE (ULTANE) 15 ML INHAL SOLN ONE (13:46)
[2021-08-26] MEDS ORDERED: TRANEXAMIC ACID 100 MG/ML 10 ML INJECTION ONE (14:02)
[2021-08-26] MEDS ORDERED: HYDROmorphone 2 MG/ML VIAL (DILAUDID) IV ONE (14:15)
[2021-08-26] MEDS ORDERED: PROMETHAZINE INJ 25 MG/ML (PHENERGAN) AMP IVP ONE (14:15)
--- NOTE | 2021-08-26 14:39 | Diagnostic Imaging Report ---
INDICATION: Status post left knee replacement. COMPARISON: None. FINDINGS: Two views of the left knee were obtained. Expected postoperative changes are seen from previous left knee total arthroplasty. Femoral and tibial components appear well-seated. There is no evidence of periprosthetic fracture. There is a small amount of subcutaneous emphysema in the soft tissues over the knee. Skin ioana are seen centrally over the anterior aspect of the knee. No unexpected radiopaque foreign bodies are identified. IMPRESSION: Expected postsurgical changes from previous left knee total arthroplasty, as described above. No unexpected radiopaque foreign bodies. Dictated by: Dictated on workstation # [id number]
[2021-08-26] MEDS ORDERED: NS IV 1000 ML 1,000 ML ONE (14:47)
[2021-08-26] MEDS ORDERED: morphine PCA 100 MG/100 ML BAG IV ONE (15:03)
--- NOTE | 2021-08-26 15:07 | Physical Therapy Progress Note ---
Therapy Progress Note Order for PT abner received. Patient still not in room yet at 1505. Will start in the morning. VERENA EL PT Aug 26, 2021 15:07
--- NOTE | 2021-08-26 15:12 | Consultation - Hospitalist ---
HPI History of Present Illness: HPI/Chief Complaint Patient 65-year-old male known to me from recent admission for DKA who returned to the OR today for revision due to patellar instability. I am consul michael for medical management. He has no current medical complaints but does complain of knee pain. 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 He also just complains of being groggy from anesthesia. Family member at bedside has no concerns. Source: patient Exam Limitations: no limitations Date Seen 08/26/21 Attending Physician Karly Mohamud MD PCP Admitting Physician: Davion Rosenberg MD Attending Physician: Davion Rosenberg MD Referring Physician Date of Admission Aug 26, 2021 at 09:21 Home Medications & Allergies Home Medications Reviewed patient Home Medication Reconciliation performed by pharmacy medication reconciliations planetarium technician and/or nursing. Patients Allergies have been reviewed. Allergies Allergies Coded Allergies ondansetron (Verified Allergy, Severe, Anaphylaxis, 08/26/21) Past Vizrucl-Ijeirx-Mahmbb Hx Patient Social History Marrital Status: Tobacco Use?: No Smoking Status: Never a Smoker Smokeless Tobacco Frequency: Former User Use of E-Cig and/or Vaping dev: No Substance use?: No Alcohol Use?: Yes Alcohol type: Beer Alcohol Frequency: Once in a while Pt feels they are or have been: No Immunizations Up To Date First/Initial COVID19 Vaccinat: No Second COVID19 Vaccination Santy: No Seasonal Allergies Seasonal Allergies: No Current Status Advance Directives: No Primary Language: Citizen Of [place] Sensory deficits: Vision impairment Additional sensory deficits: GLASSES Implanted or Applied Medical D: None Past Medical History Surgeries: Orthopedic Currently Using CPAP: No Currently Using BIPAP: No Coronary Artery Disease Arthritis Family Medical History Reviewed Nursing Family Hx No Pertinent Family Hx Review of Systems Constitutional: no symptoms reported EENTM: no symptoms reported Respiratory: no symptoms reported Cardiovascular: no symptoms reported Gastrointestinal: no symptoms reported Genitourinary: no symptoms reported Musculoskeletal: see HPI, joint pain Skin: no symptoms reported Psychiatric/Neurological: No Symptoms Reported Physical Exam Physical Exam Vital Signs Vital Signs - First Documented Capillary Refill : Less Than 3 Seconds Height, Weight, BMI Height: '" Weight: lbs. oz. kg; 28.18 BMI Method: General Appearance: No Apparent Distress, WD/WN HEENT: PERRL/EOMI, Moist Mucous Membranes Neck: Normal Inspection, Supple Respiratory: Lungs Clear, No Respiratory Distress Cardiovascular: Regular Rate, Rhythm, No Murmur Gastrointestinal: Normal Bowel Sounds, Non Tender, Soft Extremity: Normal Capillary Refill, No Calf Tenderness, No Pedal Edema Neurologic/Psychiatric: Alert, Oriented x3, Normal Mood/Affect Skin: Normal Color, Warm/Dry Results Results/Procedures Labs Patient resulted labs reviewed. Imaging: Reviewed Imaging Report Imaging [facility], [place] NAME: DENISE PAREDES [facility] REC#: [id number] PT STATUS: ADM IN : 1955 PHYSICIAN: JUJU NUÑEZ ADMIT DATE: 08/26/21/SURG Draft Date of Exam:08/26/21 KNEE, LEFT, 2 VIEWS (AP & LAT) INDICATION: Status post left knee replacement. COMPARISON: None. FINDINGS: Two views of the left knee were obtained. Expected postoperative changes are seen from previous left knee total arthroplasty. Femoral and tibial components appear well-seated. There is no evidence of periprosthetic fracture. There is a small amount of subcutaneous emphysema in the soft tissues over the knee. Skin ioana are seen centrally over the anterior aspect of the knee. No unexpected radiopaque foreign bodies are identified. IMPRESSION: Expected postsurgical changes from previous left knee total arthroplasty, as described above. No unexpected radiopaque foreign bodies. Dictated on workstation # [id number] Dict: 08/26/21 1436 Trans: 08/26/21 1439 [id number] Interpreted by: PATRICIA DONATO MD Electronically signed by: Assessment/Plan Assessment and Plan Assess & Plan/Chief Complaint s/p TKA revision had patellar instability, revised operative today POD #0 PT/OT Pain regimen Bowel regimen h/o CAD Elevated BP Takes not meds at this time Monitor BP- mildly elevated DVT ppx: Lovenox Will round prn, please call with any concerns LEIGH ANN YANCEY MD Aug 26, 2021 15:12
[2021-08-26] MEDS: NS IV 1000 ML 1,000 ML IV SCH (15:13)
[2021-08-26] MEDS: CEFUROXIME INJECTION 750 MG in NS (IVPB) 50 ML IV SCH (17:30)
[2021-08-26] MEDS: SENNA W/DOCUSATE (SENOKOT S) TABLET PO SCH (20:23)
[2021-08-26] MEDS: oxyCODONE/APAP 5/325MG (PERCOCET 5) TABLET PO PRN ×2 (20:23→23:27)
[2021-08-27] VITALS: BP 175/93
[2021-08-27] MEDS: CEFUROXIME INJECTION 750 MG in NS (IVPB) 50 ML IV SCH (00:47)
[2021-08-27] MEDS: NS IV 1000 ML 1,000 ML IV SCH ×2 (00:47→12:19)
--- NOTE | 2021-08-27 00:56 | OPERATIVE REPORT ---
DATE OF SERVICE: 08/26/2021 POSTOPERATIVE DIAGNOSIS: Left knee patellar instability, status post total knee arthroplasty. POSTOPERATIVE DIAGNOSIS: Left knee patellar instability, status post total knee arthroplasty. PROCEDURE: Left total knee arthroplasty revision. SURGEON: Davion Correa MD SENIOR PROCESS ENGINEER: Patrick Moy, who assisted throughout the procedure and closed the incision. ANESTHESIA: General endotracheal by Edwina Hayward CRNA. TOURNIQUET TIME: Approximately 90 minutes at 300 mmHg. ESTIMATED BLOOD LOSS: Minimal. DRAINS: None. COMPLICATIONS: None. POSTOPERATIVE PLAN: 0 to 30 degrees range of motion for 2 weeks and then 0 to 45 degrees range of motion for 2 more weeks with weightbearing as tolerated. MATERIALS: Microport size 7 stemmed femur. STATEMENT OF MEDICAL NECESSITY: The patient is a 65-year-old gentleman who three weeks ago underwent left total knee arthroplasty revision. He presented with complaints of patellar instability in flexion. His patella is stable, but with active quad contraction, he pulled the patella laterally when he moved to extension. CT scan was obtained, which revealed what appeared to be neutral rotation on the femoral component. Due to functional impairment, the patient elected to proceed with surgical intervention. He understood that he could still have patellar instability. DESCRIPTION OF PROCEDURE: After risks and benefits of procedure were discussed and questions were answered, an informed consent was signed and placed on chart, the operative site was confirmed in the preoperative holding area initialed by the surgeon. The patient was then transferred to the operating room and after adequate levels of general endotracheal anesthetic were obtained, timeout was called, confirming the operative site. The left lower extremity was examined and no instability was noted passively. The patella tracked well. There is no varus valgus laxity and the patient had a negative anterior and posterior drawer. With the leg elevated and the knee flexed, tourniquet was inflated to 300 mmHg. The previous incision was utilized. Hemostasis was obtained with cautery. The previous parapatellar sutures were removed. There was no gross disruption of the repair noted. The knee was exposed. The polyethylene implant was removed. The tibial rotation was checked and felt to be well aligned. The femoral prosthesis was removed and two degrees of less valgus and increased external rotation was placed. The cutting block was placed with increased external rotation and the trial was inserted after reaming the femoral canal for the stem. The patella tracked well and no subluxation was noted. This appeared to improve tracking grossly. The alignment of his knee itself was improved. The trial was removed. The joint was irrigated with pulse lavage. The tibial surface was irrigated and dried and the polyethylene insert was placed. The distal femur was then irrigated and dried and the femoral prosthesis was placed in increased external rotation. Excessive cement was removed. The knee was brought out into full extension until cement had cured. The knee was taken through range of motion. The patella was stable throughout. The joint was further irrigated with pulse lavage and a anvyl-ekis-pqcm medial retinacular advancement was performed with an excellent repair obtained. This was then reinforced with #2 Tevdek and #2 FiberWire. The knee was flexed and at 90 degrees, there was no disruption of the repair. The patella tracked well. There was no varus valgus laxity. Full extension was noted. There was negative anterior and posterior drawer. Subcutaneous tissues were further irrigated with pulse lavage, 0 Vicryl was used for the deep subcutaneous layer, 2-0 Vicryl for the superficial subcutaneous layer, ioana used on the skin. A soft dressing was applied and the tourniquet was deflated. The patient was transferred to recovery room awake and in stable condition. Job ID: [id number] DocumentID: [id number] Dictated Date: 08/26/2021 13:51:51 Department Assistant Date: 08/27/2021 00:55:42 Dictated By: DAVION CORREA MD
[2021-08-27] MEDS: oxyCODONE/APAP 5/325MG (PERCOCET 5) TABLET PO PRN ×10 (01:38→22:15)
[2021-08-27 03:43] VITALS: BP 165/93
[2021-08-27 06:01] LABS: HEMOGLOBIN 12.6 g/dL (13.3-17.7)
--- NOTE | 2021-08-27 07:44 | Progress Note ---
Standard Progress Note Progress Notes/Assess & Plan Date Seen by a Provider: Aug 27, 2021 Time Seen by a Provider: 07:42 Progress/Assessment & Plan c/o pain radiographs--HW well positioned without fracture Vital Signs Date Time Temp Pulse Resp B/P (MAP) Pulse Ox O2 Delivery O2 Flow Rate FiO2 08/27/21 03:43 36.5 100 16 165/93 (117) 100 Room Air 08/27/21 00:00 36.6 90 16 175/93 (120) 98 Room Air 08/26/21 20:20 Room Air 08/26/21 20:20 16 08/26/21 20:00 37.0 97 16 121/84 (96) 96 Room Air 08/26/21 16:00 36.7 90 18 150/90 (110) 97 Room Air 08/26/21 14:59 36.3 85 16 128/86 (100) 96 Room Air 08/26/21 14:50 36.3 20 144/98 (113) 96 Room Air 08/26/21 14:50 Room Air 08/26/21 14:45 Room Air 08/26/21 14:40 20 142/89 (106) 94 Room Air 08/26/21 14:30 20 143/96 (112) 95 Room Air 08/26/21 14:30 Room Air 08/26/21 14:20 20 148/89 (108) 96 Room Air 08/26/21 14:15 OxyMask 3 08/26/21 14:10 20 154/99 (117) 96 OxyMask 2 08/26/21 14:00 20 154/99 (117) 100 OxyMask 2 08/26/21 14:00 OxyMask 3 08/26/21 13:52 36.7 20 124/96 (105) 100 OxyMask 3 08/26/21 13:52 OxyMask 3 08/26/21 09:27 97 Room Air 08/26/21 09:27 36.7 87 20 134/98 (110) 97 Room Air I & O 08/27/21 07:00 Intake Total 3320 ml Output Total 1500 ml Balance 1820 ml Laboratory Tests Test 08/27/21 05:36 Range/Units Hemoglobin 12.6 L 13.3-17.7 g/dL Hematocrit 39 L 40-54 % LLE--dressing intact. no calf tenderness intact DF and PF of toes and ankle sensation intact throughout 2 plus DP pulse s/p LTKA brace at all times WBAT MANJEET CORREA MD Aug 27, 2021 07:44
--- NOTE | 2021-08-27 07:47 | Anesthesia-General Post-Op ---
General Patient Condition Mental Status/LOC: Same as Preop Cardiovascular: Satisfactory Nausea/Vomiting: Absent Respiratory: Satisfactory Pain: Controlled Complications: Absent Post Op Complications Complications None Follow Up Care/Instructions Patient Instructions None needed. Anesthesia/Patient Condition Patient Condition Patient is doing well, no complaints, stable vital signs, no apparent adverse anesthesia problems. No complications reported per nursing. [place] [facility] Criteria: ADRIANA Sabillon CRNA Aug 27, 2021 07:47
[2021-08-27] MEDS: ASPIRIN E.C. 81 MG (ECOTRIN) TAB PO SCH (08:37)
[2021-08-27] MEDS: SENNA W/DOCUSATE (SENOKOT S) TABLET PO SCH ×2 (08:38→20:00)
[2021-08-27] MEDS: ENOXAPARIN INJECTION 30 MG/0.3 ML SYR SC SCH ×2 (08:38→20:00)
[2021-08-27 08:55] VITALS: BP 154/83
--- NOTE | 2021-08-27 10:50 | Physical Therapy Evaluation ---
PT Evaluation-General Medical Diagnosis Admission Date Aug 26, 2021 at 09:21 Medical Diagnosis: left paterllar subluxation Onset Date: Aug 26, 2021 Therapy Diagnosis Therapy Diagnosis: debility Precautions Precautions/Isolations: Standard Precautions Weight Bear Status Right Lower Extremity: Right Full Weight Bearing Left Lower Extremity: Left Weight Bearing/Tolerated immobilized left LE in place at all times at 30 degrees flexion Referral Physician: Chet Reason for Referral: Evaluation/Treatment Medical History Additional Medical History s/p left TKA July 29, 2021 Current History Patient reports he was working with PT when they heard a "pop". Reviewed History: Yes Social History Home: Single Level Current Living Status: Spouse Entry Into Home: Stairs With Railing PT Steps Into Home: 2 Prior Prior Level of Function SCALE: Activities may be completed with or without assistive devices. 4-Evexnukvip-tdsmmle completes the activity by him/herself with no assistance from a helper. 5-Set-up or Clean-up Assistance-helper sets up or cleans up; patient completes activity. [place] assists only prior to or following the activity. 4-Supervision or Touching Assistance-helper provides verbal cues and/or touching/steadying and/or contact guard assistance as patient completes activity. Assistance may be provided throughout the activity or intermittently. 3-Partial/Moderate Assistance-helper does LESS THAN HALF the effort. [place] lifts, holds or supports trunk or limbs, but provides less than half the effort. 2-Substantial/Maximal Assistance-helper does MORE THAN HALF the effort. [place] lifts or holds trunk or limbs and provides more than half the effort. 0-Qocdmlwcx-cltsuk does ALL the effort. Patient does none of the effort to complete the activity. Or, the assistance of 2 or more helpers is required for the patient to complete the activity. If activity was not attempted, code reason: 7-Patient Refused. 9-Not Applicable-not attempted and the patient did not perform the activity before the current illness, exacerbation or injury. 10-Not Attempted due to Environmental Limitations-(lack of equipment, weather restraints, etc.). 88-Not Attempted due to Medical Conditions or Safety Concerns. Bed Mobility: 6 Transfers (B,C,W/C): 6 Gait: 6 Stairs: 6 Indoor Mobility (Ambulation): Independent Stairs: Independent Prior Device Use: FWW and cane PT Evaluation-Current Subjective Patient agrees to PT. Pain Numeric Pain Scale: 8 Location: Left Location Body Site: Knee Pain Description: Acute Comment: DIRECTOR OF [employer]IDENCE [employer] and RN issueing pain pill Objective Patient Orientation: Normal For Age Attachments: Polar Pack, IV ROM/Strength ROM Lower Extremities left LE limited to 30 degrees flexion with immobilizer in place/right LE WFL Strength Lower Extremities right LE 4/5; left LE 3/5 grossly Integumentary/Posture Integumentary refer to nursing notes Bowel Incontinence: No Bladder Incontinence: No Posture WFL Neuromuscular (Tone, Coordination, Reflexes) grossly intact Sensory Vision: Wears Glasses Hearing: Functional Transfers Lying to Sitting/Side of Bed(Q: 6 Sit to Stand (QC): 4 Chair/Raw-mt-Nztkr Xfer(QC): 4 Gait Mode of Locomotion: Walk Anticipated Mode of Locomotion: Walk Walk 10 feet (QC): 4 Walk 50 ft with 2 Turns(QC): 4 Walk 150 ft (QC): 4 Distance: 150' Gait Assistive Device: FWW Comments/Gait Description slow, steady, antalgic Balance Sitting Static: Normal Sitting Dynamic: Normal Standing Static: Normal Standing Dynamic: Normal Assessment/Needs 65 y.o. male, will benefit from skilled PT to address functional strength and mobility to improve current LOF to safely return to home with spouse at maximum LOF. Rehab Potential: Good PT Cso Goals Senior Living Goals PT Cso Goals Time Frame: Sep 05, 2021 Roll Left & Right (QC): 6 Sit to Lying (QC): 6 Lying-Sitting on Side/Bed(QC): 6 Sit to Stand (QC): 6 Chair/Oxj-dt-Fxyou Xfer(QC): 6 Toilet Transfer (QC): 6 Walk 10 feet (QC): 6 Walk 50ft with 2 Turns (QC): 6 Walk 150 ft (QC): 6 Walking 10ft on Uneven Surface: 6 1 Step (curb) (QC): 6 4 Steps (QC): 6 PT Plan Treatment/Plan Treatment Plan: Continue Plan of Care Treatment Plan: Bed Mobility, Education, Functional Activity Anahy, Functional Strength, Gait, Safety, Therapeutic Exercise, Transfers Treatment Duration: Sep 05, 2021 Frequency: 11 times per week Estimated Hrs Per Day: .5 hour per day Patient and/or Family Agrees t: Yes Discharge Recommendations Therapy Discharge Recommendati: Post Acute PT Time/GCodes Time In: 740 Time Out: 759 Total Billed Treatment Time: 19 Total Billed Treatment 1 visit EVModC 19 min ARACELI JONES PT Aug 27, 2021 10:49
--- NOTE | 2021-08-27 11:28 | Occupational Therapy Eval ---
OT Evaluation-General/PLF Medical Diagnosis Admission Date Aug 26, 2021 at 09:21 Medical Diagnosis: left paterllar subluxation Onset Date: Aug 26, 2021 Therapy Diagnosis Therapy Diagnosis: n/a Precautions Precautions/Isolations: Standard Precautions Weight Bear Status Weight Bearing Restriction: Weight Bearing/Tolerated Location Restriction: L LE Referral Physician: Chet Mendoza Reason: Evaluation/Treatment Medical History Current History s/p L Knee revision. Immobolizer on at all times at 30 degrees flexion. Per patient, he lives with his in a single story home. He reports indep endence with adls and that his completes all iadls. Pt is adamant that his will assist with all adls if needed. He owns a walker and a cane but was not using prior to surgery on July 29. Social History Home: Single Level Current Living Status: Spouse Entry Into Home: Stairs With Railing Steps Into Home: 2 ADL-Prior Level of Function SCALE: Activities may be completed with or without assistive devices. 0-Rtbfqmzcxu-wielcpi completes the activity by him/herself with no assistance from a helper. 5-Set-up or Clean-up Assistance-helper sets up or cleans up; patient completes activity. [place] assists only prior to or following the activity. 4-Supervision or Touching Assistance-helper provides verbal cues and/or touching/steadying and/or contact guard assistance as patient completes activity. Assistance may be provided throughout the activity or intermittently. 3-Partial/Moderate Assistance-helper does LESS THAN HALF the effort. [place] lifts, holds or supports trunk or limbs, but provides less than half the effort. 2-Substantial/Maximal Assistance-helper does MORE THAN HALF the effort. [place] lifts or holds trunk or limbs and provides more than half the effort. 1-Iutgfhlov-uctysr does ALL the effort. Patient does none of the effort to c omplete the activity. Or, the assistance of 2 or more helpers is required for the patient to complete the activity. If activity was not attempted, code reason: 7-Patient Refused. 9-Not Applicable-not attempted and the patient did not perform the activity before the current illness, exacerbation or injury. 10-Not Attempted due to Environmental Limitations-(lack of equipment, weather restraints, etc.). 88-Not Attempted due to Medical Conditions or Safety Concerns. Self Care: Independent Functional Cognition: Independent DME/Equipment: Bath Bench, Grab Bars, Tub/Shower Drive Self: Yes OT Current Status Subjective Pt reports he just received pain pill, pain rated as 5/10. Appearance Pt returned to supine in bed, all needs within reach. Mental Status/Objective Patient Orientation: Person, Place, Situation Attachments: IV, Knee Immobilizer Current Hand Dominance: Right Upper Extremity ROM WNL Upper Extremity Strength R shoulder: 4-/5 All other joints WFL ADL-Treatment Eating (QC): 6 Oral Hygiene (QC): 6 (per clinical judgment) Lower Body Dressing (QC): 4 On/Off Footwear (QC): 4 Pt supine in bed at OT arrival. Able to sit EOB without assistance, extra time to transition LLE secondary to knee immobolizer. He was able to don/doff bilateral socks without assistance. Extra time only for L foot secondary to pain and limited ROM with knee immobolizer. Pt is adamant that his can assist with adls post discharge despite demonstrating ability to complete task without assistance. He stood with SBA. Limited WB through LLE observed. Pt able to remove BUE support from walker and reach in multiple planes without LOB. Encouragement on shifting weight and increasing WB through left leg. Pt has no concerns with his ability to complete ADLs at discharge with assistance. OT provided education on bathing and care of incision. Pt reports understanding. Pt declines further OT services at this time, OT instructed him to inform nurse if further concerns arise. Education OT Patient Education: Correct positioning, Modified ADL techniques, Purpose of tx/functional activities, Reviewed precautions Teaching Recipient: Patient Teaching Methods: Discussion Response to Teaching: Verbalize Understanding, Return Demonstration OT Retirement Goals Retirement Goals 1=Demonstrate adherence to instructed precautions during ADL tasks. 2=Patient will verbalize/demonstrate understanding of assistive devices/modifications for ADL. 3=Patient will improve strength/tolerance for activity to enable patient to perform ADL's. OT Education/Plan Problem List/Assessment Assessment: No Skilled OT Needs ID'd Discharge Recommendations Plan/Recommendations: Discontinue OT Therapy Discharge Recommendati: Home & Family Treatment Plan/Plan of Care Treatment,Training & Education: Yes Patient would benefit from OT for education, treatment and training to promote independence in ADL's, mobility, safety and/or upper extremity function for AD L's. Plan of Care: ADL Retraining Treatment Duration: Aug 27, 2021 Frequency: 1 time per week Estimated Hrs Per Day: .25 hour per day Rehab Potential: Good Time/GCodes Start Time: 10:39 Stop Time: 10:52 Total Time Billed (hr/min): 13 Billed Treatment Time 1 visit Patricia Cook OT Aug 27, 2021 11:28
[2021-08-27 12:25] VITALS: BP 145/80
--- NOTE | 2021-08-27 14:58 | Physical Therapy Daily Note ---
PT Daily Note-Current Subjective Patient agrees to PT. Pain Numeric Pain Scale: 5-Moderate Pain Location: Left Location Body Site: Knee Pain Description: Acute Mental Status Patient Orientation: Normal For Age Attachments: Polar Pack, IV Transfers SCALE: Activities may be completed with or without assistive devices. 2-Klkgjaxrpr-ocjhtxj completes the activity by him/herself with no assistance from a helper. 5-Set-up or Clean-up Assistance-helper sets up or cleans up; patient completes activity. Lillian assists only prior to or following the activity. 4-Supervision or Touching Assistance-helper provides verbal cues and/or touching/steadying and/or contact guard assistance as patient completes activity. Assistance may be provided throughout the activity or intermittently. 3-Partial/Moderate Assistance-helper does LESS THAN HALF the effort. Lillian lifts, holds or supports trunk or limbs, but provides less than half the effort. 2-Substantial/Maximal Assistance-helper does MORE THAN HALF the effort. Lillian lifts or holds trunk or limbs and provides more than half the effort. 8-Fzvmofqyd-aubxzu does ALL the effort. Patient does none of the effort to complete the activity. Or, the assistance of 2 or more helpers is required for the patient to complete the activity. If activity was not attempted, code reason: 7-Patient Refused. 9-Not Applicable-not attempted and the patient did not perform the activity before the current illness, exacerbation or injury. 10-Not Attempted due to Environmental Limitations-(lack of equipment, weather restraints, etc.). 88-Not Attempted due to Medical Conditions or Safety Concerns. Lying to Sitting/Side of Bed(Q: 6 Sit to Stand (QC): 6 Chair/Spp-ru-Cmnje Xfer(QC): 6 Weight Bearing Right Lower Extremity: Right Full Weight Bearing Left Lower Extremity: Left Weight Bearing/Tolerated immobilized left LE in place at all times at 30 degrees flexion Gait Training Distance: 200' Walk 10 feet (QC): 4 Walk 50 ft with 2 Turns(QC): 4 Walk 150 ft (QC): 4 Gait Assistive Device: FWW slow, steady gait sequence Assessment Patient up in recliner with needs met. Plan dismissal to home tomorrow. PT Supervisor Network Control Operators Goals Supervisor Network Control Operators Goals PT Nursing Home Goals Time Frame: Sep 05, 2021 Roll Left & Right (QC): 6 Sit to Lying (QC): 6 Lying-Sitting on Side/Bed(QC): 6 Sit to Stand (QC): 6 Chair/Lpj-yh-Nzhqo Xfer(QC): 6 Toilet Transfer (QC): 6 Walk 10 feet (QC): 6 Walk 50ft with 2 Turns (QC): 6 Walk 150 ft (QC): 6 Walking 10ft on Uneven Surface: 6 1 Step (curb) (QC): 6 4 Steps (QC): 6 PT Plan Treatment/Plan Treatment Plan: Continue Plan of Care Treatment Plan: Bed Mobility, Education, Functional Activity Anahy, Functional Strength, Gait, Safety, Therapeutic Exercise, Transfers Treatment Duration: Sep 05, 2021 Frequency: 11 times per week Estimated Hrs Per Day: .5 hour per day Patient and/or Family Agrees t: Yes Time/GCodes Time In: 1426 Time Out: 1440 Total Billed Treatment Time: 14 Total Billed Treatment 1 visit FA 14 min ARACELI JONES PT Aug 27, 2021 14:58
[2021-08-27 16:00] VITALS: BP 131/73
[2021-08-27 19:42] VITALS: BP 142/84
[2021-08-28] MEDS: NS IV 1000 ML 1,000 ML IV SCH (00:02)
[2021-08-28 00:04] VITALS: BP 135/84
[2021-08-28] MEDS: oxyCODONE/APAP 5/325MG (PERCOCET 5) TABLET PO PRN ×3 (00:04→07:54)
[2021-08-28 03:21] VITALS: BP 121/82
[2021-08-28 06:22] LABS: HEMOGLOBIN 11.6 g/dL (13.3-17.7)
--- NOTE | 2021-08-28 06:56 | Progress Note ---
Standard Progress Note Progress Notes/Assess & Plan Date Seen by a Provider: Aug 28, 2021 Time Seen by a Provider: 06:54 Progress/Assessment & Plan c/o pain radiographs--HW well positioned without fracture Vital Signs Date Time Temp Pulse Resp B/P (MAP) Pulse Ox O2 Delivery O2 Flow Rate FiO2 08/27/21 03:43 36.5 100 16 165/93 (117) 100 Room Air 08/27/21 00:00 36.6 90 16 175/93 (120) 98 Room Air 08/26/21 20:20 Room Air 08/26/21 20:20 16 08/26/21 20:00 37.0 97 16 121/84 (96) 96 Room Air 08/26/21 16:00 36.7 90 18 150/90 (110) 97 Room Air 08/26/21 14:59 36.3 85 16 128/86 (100) 96 Room Air 08/26/21 14:50 36.3 20 144/98 (113) 96 Room Air 08/26/21 14:50 Room Air 08/26/21 14:45 Room Air 08/26/21 14:40 20 142/89 (106) 94 Room Air 08/26/21 14:30 20 143/96 (112) 95 Room Air 08/26/21 14:30 Room Air 08/26/21 14:20 20 148/89 (108) 96 Room Air 08/26/21 14:15 OxyMask 3 08/26/21 14:10 20 154/99 (117) 96 OxyMask 2 08/26/21 14:00 20 154/99 (117) 100 OxyMask 2 08/26/21 14:00 OxyMask 3 08/26/21 13:52 36.7 20 124/96 (105) 100 OxyMask 3 08/26/21 13:52 OxyMask 3 08/26/21 09:27 97 Room Air 08/26/21 09:27 36.7 87 20 134/98 (110) 97 Room Air I & O 08/27/21 07:00 Intake Total 3320 ml Output Total 1500 ml Balance 1820 ml Laboratory Tests Test 08/27/21 05:36 Range/Units Hemoglobin 12.6 L 13.3-17.7 g/dL Hematocrit 39 L 40-54 % LLE--dressing intact. no calf tenderness intact DF and PF of toes and ankle sensation intact throughout 2 plus DP pulse s/p LTKA brace at all times WBAT Final Diagnosis feeling better Vital Signs Date Time Temp Pulse Resp B/P (MAP) Pulse Ox O2 Delivery O2 Flow Rate FiO2 08/28/21 03:21 37.4 84 18 121/82 (95) 94 Room Air 08/28/21 00:04 37.4 96 18 135/84 (101) 95 Room Air 08/27/21 20:11 Room Air 08/27/21 20:10 20 08/27/21 19:42 37.4 103 20 142/84 (103) 96 Room Air 08/27/21 16:00 37.2 111 20 131/73 (92) 95 Room Air 08/27/21 12:25 37.0 93 19 145/80 (101) 95 Room Air 08/27/21 09:29 16 08/27/21 09:00 Room Air 08/27/21 08:55 37.4 107 20 154/83 (106) 94 Room Air I & O 08/28/21 07:00 Intake Total 2082 ml Output Total 4700 ml Balance -2618 ml Laboratory Tests Test 08/28/21 05:27 Range/Units Hemoglobin 11.6 L 13.3-17.7 g/dL Hematocrit 36 L 40-54 % LLE--incision clean and dry. No calf tenderness. Neg Tomer's patella well positioned s/p L TKR DC home after PT MANJEET CORREA MD Aug 28, 2021 06:56
[2021-08-28] MEDS ORDERED: morphine INJ 4 MG/ML 1 ML (VIAL/SYRINGE) IVP PRN (07:00)
[2021-08-28 07:12] VITALS: BP 154/91
[2021-08-28] MEDS: ASPIRIN E.C. 81 MG (ECOTRIN) TAB PO SCH (07:53)
[2021-08-28] MEDS: SENNA W/DOCUSATE (SENOKOT S) TABLET PO SCH (07:54)
[2021-08-28] MEDS: ENOXAPARIN INJECTION 30 MG/0.3 ML SYR SC SCH (07:54)
--- NOTE | 2021-08-28 09:48 | Physical Therapy Daily Note ---
PT Daily Note-Current Subjective Patient agrees to PT. Pain Numeric Pain Scale: 8 Location: Left Location Body Site: Knee Pain Description: Acute Comment: pain medication issued Mental Status Patient Orientation: Normal For Age Transfers SCALE: Activities may be completed with or without assistive devices. 4-Iumrvwgrah-ehmqeih completes the activity by him/herself with no assistance from a helper. 5-Set-up or Clean-up Assistance-helper sets up or cleans up; patient completes activity. [place] assists only prior to or following the activity. 4-Supervision or Touching Assistance-helper provides verbal cues and/or touching/steadying and/or contact guard assistance as patient completes activity. Assistance may be provided throughout the activity or intermittently. 3-Partial/Moderate Assistance-helper does LESS THAN HALF the effort. [place] lifts, holds or supports trunk or limbs, but provides less than half the effort. 2-Substantial/Maximal Assistance-helper does MORE THAN HALF the effort. [place] lifts or holds trunk or limbs and provides more than half the effort. 6-Fzyhiomga-hadusi does ALL the effort. Patient does none of the effort to complete the activity. Or, the assistance of 2 or more helpers is required for the patient to complete the activity. If activity was not attempted, code reason: 7-Patient Refused. 9-Not Applicable-not attempted and the patient did not perform the activity before the current illness, exacerbation or injury. 10-Not Attempted due to Environmental Limitations-(lack of equipment, weather restraints, etc.). 88-Not Attempted due to Medical Conditions or Safety Concerns. Lying to Sitting/Side of Bed(Q: 6 Sit to Stand (QC): 6 Chair/Yfx-ch-Ebwww Xfer(QC): 6 Weight Bearing Right Lower Extremity: Right Full Weight Bearing Left Lower Extremity: Left Weight Bearing/Tolerated immobilized left LE in place at all times at 30 degrees flexion Gait Training Distance: 300' Walk 10 feet (QC): 6 Walk 50 ft with 2 Turns(QC): 6 Walk 150 ft (QC): 6 Gait Assistive Device: FWW Exercises Supine Ex: Quad Set, Straight leg raise Supine Reps: 12 Assessment Patient tolerated treatment well and is dismissing to home on this date. PT Prison Goals Supervisor Delivery Department Goals PT Prison Goals Time Frame: Sep 05, 2021 Roll Left & Right (QC): 6 Sit to Lying (QC): 6 Lying-Sitting on Side/Bed(QC): 6 Sit to Stand (QC): 6 Chair/Bus-tz-Swgox Xfer(QC): 6 Toilet Transfer (QC): 6 Walk 10 feet (QC): 6 Walk 50ft with 2 Turns (QC): 6 Walk 150 ft (QC): 6 Walking 10ft on Uneven Surface: 6 1 Step (curb) (QC): 6 4 Steps (QC): 6 PT Plan Treatment/Plan Treatment Plan: Discontinue PT, goals met Treatment Plan: Bed Mobility, Education, Functional Activity [place]y, Functional Strength, Gait, Safety, Therapeutic Exercise, Transfers Treatment Duration: Sep 05, 2021 Frequency: 11 times per week Estimated Hrs Per Day: .5 hour per day Patient and/or Family Agrees t: Yes Time/GCodes Time In: 750 Time Out: 805 Total Billed Treatment Time: 15 Total Billed Treatment 1 visit FA 15 min ARACELI JONES PT Aug 28, 2021 09:48
--- NOTE | 2021-08-28 13:52 | DISCHARGE SUMMARY ---
DATE OF SERVICE: DIAGNOSIS: Patellar instability, left knee. PROCEDURE: Left total knee arthroplasty revision. SUMMARY: The patient is a 65-year-old gentleman who underwent left total knee arthroplasty revision due to patellar instability on the day of admission. Postoperatively, he did well. At time of discharge, his wound was clean and dry, had no calf tenderness. Negative Tomer signs. He is tolerating his diet well and tolerating pain with oral pain medications. CONDITION AT DISCHARGE: Good. DISCHARGE DIET: Regular. FOLLOWUP: Followup is in two weeks. ACTIVITIES: Weightbearing as tolerated with brace wear at all times except while showering. Range of motion is 0 to 30 degrees. DISCHARGE MEDICATIONS: Home medications, Percocet as needed for pain and one aspirin per day. Job ID: [id number] DocumentID: [id number] Dictated Date: 08/27/2021 17:27:41 Etl Bi Developer Date: 08/28/2021 13:51:19 Dictated By: MANJEET CORREA MD
== END 2021-08-28 09:07 | disposition home or self-care (01) | DRG 468 ==
LOC: 4TH 09:21 → SURG 09:22 → 4TH 14:54
PROVIDERS: ADMIT Orthopaedic Surgery; ATTEND Orthopaedic Surgery
PROC: 0SRD0J9 Replacement of Left Knee Joint with Synthetic Substitute, Cemented, Open Approach (ICD-10-PCS; 2021-08-26)
PROC: 0SPD0JZ Removal of Synthetic Substitute from Left Knee Joint, Open Approach (ICD-10-PCS; principal; 2021-08-26 11:49)
DX: T84.023A Instability of internal left knee prosthesis, initial encounter (principal); I25.10 Atherosclerotic heart disease of native coronary artery without angina pectoris; R03.0 Elevated blood-pressure reading, without diagnosis of hypertension
CPT/HCPCS: 36415; 73560; 85014; 85018; 87081; 94664